=== PATIENT | male | born 1965 | race Caucasian/White ===

== ENCOUNTER → 2016-06-20 | Outpatient (CLI) | payer OTHER ==
[~2016-06-20] MED LIST: /CLON1TA PO; /PREG25CA PO; /PRIM50TA PO; ALBU17IN INH; AUGM875T27 PO; AVOD0.5C; BOTO200I INJ; CIAL5TAB; CIAL5TAB PO; CLEO300C2 PO; CYMB1CAP PO; DICL100T PO; HYDR-3716 PO; HYDR-3719 PO; HYDR7.5T38 PO; INDO25CA PO; IRON65TA PO; LEVA250T; PANT40TA2 PO; PAXI30TA PO; PENN1.5S2 TD; PERC7.5T12 PO; PROP20TA5 PO; PROT20TA11 PO; PROZ20CA11 PO; SLEETAB2 PO; THERGRAN PO; TIOT18INH INH; TRIM10TA PO; TUDO400A IN; ULTR50TA PO; VALI5TAB PO; VICO5TAB PO; VICO7.5T PO; VICODINES TAB PO; VITMTA PO; VOLT1GEL2 TD; ZOLO100T PO; ZOLO50TA PO; [UNRECOGNIZED DRUG - CODE] PO; [UNRECOGNIZED DRUG - CODE] PO; [UNRECOGNIZED DRUG - CODE] PO; [UNRECOGNIZED DRUG - OTHER] TOP; trazadone PO
--- NOTE | 2016-06-30 02:14 | ECWPNPC ---
PATIENT NAME: MONICA CURTIS : 1965 GENDER: MALE VISIT DATE: 06/20/2016 DISCHARGE DATE: 06/20/16 1508 VISIT LOCKED DATE TIME: PHYSICIAN: HARLEEN ASHLEY RESOURCE: HARLEEN ASHLEY REASON FOR APPOINTMENT 1. FOLLOW UP-BACK HISTORY OF PRESENT ILLNESS HISTORY OF PRESENT ILLNESS: PAIN THE PATIENT DESCRIBES THE PAIN... FALL RISK SCREENING: SCREENING :NO FALLS IN THE PAST YEAR TODAY'S VISIT: NOTES: WC FOLLOW UP FOR LOW BACK PAIN. RATES PAIN TODAY 7/10. DESRIBES PAIN SHARP AND STABBING. NOTES SPIKES OF PAIN WHCH CAN LAST FROM AN HOUR TO SEVERAL DAYS. NOTES PAIN WAXES AND WANES IN INTENSITY. SLEEP HAS BEEN DISRUPTED BY PAIN. . CURRENT MEDICATIONS TAKING MULTIVITAMINS TABLET DIRECTED ORALLY TAKING PROTONIX 40 MG TABLET DELAYED RELEASE DIRECTED ORALLY ONCE DAILY TAKING ZOLOFT 175 TABLET 1 TABLET ORALLY ONCE A DAY TAKING HYDROCODONE-ACETAMINOPHEN 10-325 MG TABLET 1 TAB ORALLY Q4H PRN PAIN MDD5 TAKING ASMANEX HFA 100 MCG/ACT AEROSOL 2 PUFFS IN THE EVENING INHALATION ONCE A DAY NOT-TAKING TIZANIDINE HCL 4 MG TABLET 1 OR 2 TABLET ORALLY AT BEDTIME NOT-TAKING DIAZEPAM 5 MG TABLET 1 TABLET ORALLY DAILY MDD=1 NOT-TAKING VALIUM 5 MG TABLET 1 TAB(S) ORALLY TAKE 1 TAB DAILY PERN SPASM MDD=1 NOT-TAKING VALIUM 2 MG TABLET 1 TABLET ORALLY ONCE A DAY MDD=1 NOT-TAKING FLUOXETINE 10 10MG TABLET DIRECTED ORAL NOT-TAKING CIALIS 20 MG TABLET 1 TABLET ORALLY NOT-TAKING CIALIS 20 MG TABLET 1 TABLET ORALLY DAILY NOT-TAKING DOXYCYCLINE HYCLATE 100 MG TABLET 1 TABLET P.O. BID NOT-TAKING DOXYCYCLINE MONOHYDRATE 100 MG CAPSULE 1 CAPSULE ORALLY BID NOT-TAKING TRIMETHOPRIM 100 MG TABLET 2 TABLET ORALLY QD DISCONTINUED SPIRIVA HANDIHALER 18 MCG CAPSULE 1 CAPSULE INHALATION ONCE A DAY DISCONTINUED NORCO 10-325 MG TABLET 1 TABLET ORALLY EVERY4 HRS PRN PAIN MDD=5 MEDICATION LIST REVIEWED AND RECONCILED WITH THE PATIENT PAST MEDICAL HISTORY ERECTILE DYSFUNCTION ANXIETY ESOPHAGEAL REFLUX NASAL POLYPS HYPERLIPIDEMIA SLEEP APNEA RHEUMATIOD ARTHRITIS ALLERGIES N.K.D.A. SOCIAL HISTORY GENERAL: TOBACCO USE ARE YOU A:NONSMOKER LEARNING BARRIERS / SPECIAL NEEDS ORIENTED TO PLAN OF CARE: PATIENT, PAIN MANAGEMENT PATIENT, ORIENTED TO PLAN OF CARE: PATIENT, PAIN MANAGEMENT PATIENT. NEW PATIENT PAIN DIARY TODAY'S VISITNOTES FROM 0-10, WHAT LEVEL IS YOUR PAIN TODAY?0 PAIN CLINIC PFS, CLERGY, PUBLIC HEALTH REFERRALS PFS REFERRAL NEEDED?NO CLERGY REFERRAL NEEDED?NO PUBLIC HEALTH REFERRAL NEEDED?NO WAS THE PROVIDER NOTIFIED OF ANY PERTINENT INFO?NO PFS REFERRAL NEEDED?NO CLERGY REFERRAL NEEDED?NO PUBLIC HEALTH REFERRAL NEEDED?NO WAS THE PROVIDER NOTIFIED OF ANY PERTINENT INFO?NO REVIEW OF SYSTEMS CONSTITUTIONAL: ANY CHANGE IN YOUR MEDICAL CONDITION? NO . CHILLS NO . FEVER NO . INFECTION: DO YOU HAVE NEW INFECTIONS? NO . DO YOU HAVE HISTORY OF MRSA? NO . MUSCULOSKELETAL: ANY NEW PATTERNS OF PAIN OR NUMBNESS? NO . GASTROENTEROLOGY: ANY NEW CHANGE IN BOWEL CONTROL? NO . GENITOURINARY: ANY NEW CHANGE IN BLADDER CONTROL? NO . IS THERE A CHANCE YOU COULD BE ? NO . HEMATOLOGY/LYMPH: DO YOU TAKE ANY BLOOD THINNERS? (FOR EXAMPLE- COUMADIN, PLAVIX, AGGRENOX, PLATEL, PRADAXA, OR XARELTO) NO . WHEN WAS YOUR LAST DOSE? DATE: TIME: . NEUROLOGY: HAVE YOU FALLEN IN THE PAST 6 MONTHS? YES PT REPORTS HIS LEFT LEG GAVE OUT AND HE LANDED ON HIS KNEES, DENIES INJURY . ANY NEW EXTREMITY NUMBNESS OR WEAKNESS? NO . CARDIOLOGY: DO YOU HAVE A PACEMAKER OR DEFIBRILLATOR? NO . RESPIRATORY: HAVE YOU BEEN SICK IN THE PAST WEEK? NO . FEVER NO . FLU LIKE SYMPTOMS? NO . GENERAL RECENT BRONCHIITS WITH BROWN/WHITE PRODUCTION . COUGH NO . INTEGUMENTARY: DO YOU HAVE ANY RASHES OR OPEN SORES? NO . ALLERGIC/IMMUNO: ARE YOU ALLERGIC TO SHELLFISH OR IV DYE? NO . ANY NEW ALLERGIES? NO . PSYCHIATRIC: DO YOU HAVE THOUGHTS OF HURTING YOURSELF OR SOMEONE ELSE? NO . ARE YOU ABUSED, NEGLECTED, OR IN AN UNSAFE ENVIRONMENT? NO . ENDOCRINOLOGY: ARE YOU DIABETIC? NO . OTHER: DO YOU NEED ANY PRESCRIPTIONS? YES . IF YES, PLEASE LIST: ____ . ANY NEW PROBLEMS WITH YOUR MEDICATIONS? NO . WHEN DID YOU LAST EAT? ____ . WHEN DID YOU LAST DRINK? ____ . WHAT DID YOU LAST DRINK? ____ . NAME OF PERSON DRIVING YOU HOME? ____ . DO YOU HAVE ANY OTHER QUESTIONS OR CONCERNS NO . REVIEWED BY: PROVIDER: HARLEEN COSTELLO . VITAL SIGNS WT 208 LBS, HT 70 IN, BMI 29.84 INDEX, BP 115/67 MM HG, HR 105 /MIN, RR 18 /MIN, TEMP 98.4 F, OXYGEN SAT % 99, SAFE IN ENV? (Y/N) YES, NA INITIALS TL 1413, REVIEWED BY: HALEIGH. EXAMINATION GENERAL EXAMINATION: PSYCHALERT , ORIENTED X 3 , APPROPRIATE MOOD AND AFFECT , SMILES MORE TODAY. LUNGS:BILATERAL SCATTERED WHEEZES. HEART:HEART RATE REGULAR. MUSCULOSKELETAL:PALPATION: POSITIVE FOR PAIN OVER LUMBOSACRAL SPINE.. POSITIVE FOR PAIN OVER LUMBAR PARASPINAL MUSCLES.. BILATERAL LOWER EXTREMITIY WEAKNESS NOTED IN QUADS, LEFT > RIGHT.. ABLE TO RISE TO STANDING POSITION. GAIT ANTALGIC. CANE USED FOR BALANCE.. NEUROLOGIC EXAM:MILD INTENTION TREMOR NOTED . ASSESSMENTS LUMBAR POST-LAMINECTOMY SYNDROME - M96.1 (PRIMARY) CHRONICALLY ON OPIATE THERAPY - Z79.891 MYALGIA - M79.1 TREATMENT LUMBAR POST-LAMINECTOMY SYNDROME NOTES: TRY TAKING TIZANIDINE 1-2 TABS EVERY OTHER NITE FOR SLEEP AND SPASM. CONTINUE CURRENT MEDS. CLINICAL NOTES: ISTOP REGISTRY REVIEWED AND DEMNOSTRATES COMPLLIANCE. BRINGS IN MEDICATIONS WHICH IS APPROPRIATE FOR WHAT WAS DISPENSED. RECENT URINE TOXICOLOGY REVIEWED. NO UNAUTHORIZED MEDICATIONS. NO ILLICIT SUBSTANCES AND PRESCRIBED MEDICATIONS WERE PRESENT. PROCEDURES PN WORKMANS' COMP OPINION IN YOUR OPINION, WAS THE INCIDENT THAT THE PATIENT DESCRIBED THE COMPETENT MEDICAL CAUSE OF THIS INJURY/ILLNESS? YES ARE THE PATIENT'S COMPLAINTS CONSISTENT WITH HIS/HER HISTORY OF THE INJURY/ILLNESS? YES IS THE PATIENT'S HISTORY OF THE INJURY/ILLNESS CONSISTENT WITH YOUR OBJECTIVE FINDING? YES WHAT IS THE PERCENTAGE OF TEMPORARY IMPAIRMENT? MODERATE TO MARKED = 66.7% IS THE PATIENT WORKING? NO DOCTOR ON SITE: AYAZ COSTELLO MD PROCEDURE CODES FA211 ESTABILISHED PATIENT [facility] CHARGE DISPOSITION & COMMUNICATION FOLLOW UP 6 WEEKS (REASON: WC BACK) ELECTRONICALLY SIGNED BY MAJOR AVILA ON 06/29/2016 AT 05:00 PM EST DISCLAIMER : THIS IS A VISIT SUMMARY EXTRACTED FROM THE [employer] CHART. IT IS NOT A COPY OF THE [employer] PROGRESS NOTE. JOIE
== END ==
LOC: M PAIN 14:20
PROVIDERS: ATTEND Nurse Practitioner Family
DX: Z09 Encounter for follow-up examination after completed treatment for conditions other than malignant neoplasm (principal); G89.29 Other chronic pain; M96.1 Postlaminectomy syndrome, not elsewhere classified; M79.1 Myalgia; M54.16 Radiculopathy, lumbar region; F41.9 Anxiety disorder, unspecified; K21.9 Gastro-esophageal reflux disease without esophagitis; E78.5 Hyperlipidemia, unspecified; G47.30 Sleep apnea, unspecified; M06.9 Rheumatoid arthritis, unspecified; Z79.891 Long term (current) use of opiate analgesic; Z79.51 Long term (current) use of inhaled steroids; Z79.899 Other long term (current) drug therapy

== ENCOUNTER → 2016-07-29 | Outpatient (CLI) | payer OTHER ==
--- NOTE | 2016-08-10 02:02 | ECWPNPC ---
PATIENT NAME: MONICA CURTIS : 1965 GENDER: MALE VISIT DATE: 07/29/2016 DISCHARGE DATE: 07/29/16 1449 VISIT LOCKED DATE TIME: PHYSICIAN: HARLEEN ASHLEY RESOURCE: HARLEEN ASHLEY REASON FOR APPOINTMENT 1. BACK HISTORY OF PRESENT ILLNESS HISTORY OF PRESENT ILLNESS: PAIN THE PATIENT DESCRIBES THE PAIN... FALL RISK SCREENING: SCREENING :NO FALLS IN THE PAST YEAR TODAY'S VISIT: NOTES: FOLLOWUP FOR LOW BACK PAIN. RATES PAIN TODAY 5/10. DESCRIBES PAIN SHARP, STABBING AND SHOOTING. WITH SPIKES OF PAIN INTO LEGS AT TIMES. DR KASH VAZQUEZ HAS TOLD HIM TO STOP TIZANIDINE AND HE WILL BE STARTING SOMETHING DIFFERENT FOR SLEEP. . CURRENT MEDICATIONS TAKING MULTIVITAMINS TABLET DIRECTED ORALLY TAKING PROTONIX 40 MG TABLET DELAYED RELEASE DIRECTED ORALLY ONCE DAILY TAKING ZOLOFT 175 TABLET 1 TABLET ORALLY ONCE A DAY TAKING ASMANEX HFA 100 MCG/ACT AEROSOL 2 PUFFS IN THE EVENING INHALATION ONCE A DAY TAKING HYDROCODONE-ACETAMINOPHEN 10-325 MG TABLET 1 TAB ORALLY Q4H PRN PAIN MDD5 NOT-TAKING TIZANIDINE HCL 4 MG TABLET 1 OR 2 TABLET ORALLY AT BEDTIME NOT-TAKING DIAZEPAM 5 MG TABLET 1 TABLET ORALLY DAILY MDD=1 NOT-TAKING VALIUM 5 MG TABLET 1 TAB(S) ORALLY TAKE 1 TAB DAILY PERN SPASM MDD=1 NOT-TAKING VALIUM 2 MG TABLET 1 TABLET ORALLY ONCE A DAY MDD=1 NOT-TAKING FLUOXETINE 10 10MG TABLET DIRECTED ORAL NOT-TAKING CIALIS 20 MG TABLET 1 TABLET ORALLY NOT-TAKING CIALIS 20 MG TABLET 1 TABLET ORALLY DAILY NOT-TAKING DOXYCYCLINE HYCLATE 100 MG TABLET 1 TABLET P.O. BID NOT-TAKING DOXYCYCLINE MONOHYDRATE 100 MG CAPSULE 1 CAPSULE ORALLY BID NOT-TAKING TRIMETHOPRIM 100 MG TABLET 2 TABLET ORALLY QD PAST MEDICAL HISTORY ERECTILE DYSFUNCTION ANXIETY ESOPHAGEAL REFLUX NASAL POLYPS HYPERLIPIDEMIA SLEEP APNEA RHEUMATIOD ARTHRITIS ALLERGIES N.K.D.A. SURGICAL HISTORY CARPAL TUNNEL RELEASE CYSTOSCOPY GENITAL WARTS LAMINECTOMY 2011 TURP SOCIAL HISTORY GENERAL: TOBACCO USE ARE YOU A:CURRENT SMOKER HOW MANY CIGARETTES A DAY DO YOU SMOKE?11-20 HOW SOON AFTER YOU WAKE UP DO YOU SMOKE YOUR FIRST CIGARETTE?WITHIN 5 MIN HOW OFTEN DO YOU SMOKE CIGARETTES?EVERY DAY PATIENT COUNSELED ON THE DANGERS OF TOBACCO USE AND URGED TO QUIT:07/29/2016 ARE YOU INTERESTED IN QUITTING?NOT READY TO QUIT COUNSELED THE PATIENT ON SMOKING EFFECTS, EDUCATION [id number]/24/2017 CAFFEINE CAFFEINE USE?YES DAILY LEARNING BARRIERS / SPECIAL NEEDS ORIENTED TO PLAN OF CARE: PATIENT, PAIN MANAGEMENT PATIENT, ORIENTED TO PLAN OF CARE: PATIENT, PAIN MANAGEMENT PATIENT. NEW PATIENT PAIN DIARY TODAY'S VISITNOTES FROM 0-10, WHAT LEVEL IS YOUR PAIN TODAY?0 PAIN CLINIC PFS, CLERGY, PUBLIC HEALTH REFERRALS PFS REFERRAL NEEDED?NO CLERGY REFERRAL NEEDED?NO PUBLIC HEALTH REFERRAL NEEDED?NO WAS THE PROVIDER NOTIFIED OF ANY PERTINENT INFO?NO PFS REFERRAL NEEDED?NO CLERGY REFERRAL NEEDED?NO PUBLIC HEALTH REFERRAL NEEDED?NO WAS THE PROVIDER NOTIFIED OF ANY PERTINENT INFO?NO REVIEWED, UPDATED.[facility].12/12/14. REVIEW OF SYSTEMS CONSTITUTIONAL: ANY CHANGE IN YOUR MEDICAL CONDITION? YES PT HAS NOT BEEN SLEEPING WELL . CHILLS NO . FEVER NO . INFECTION: DO YOU HAVE NEW INFECTIONS? NO . DO YOU HAVE HISTORY OF MRSA? NO . MUSCULOSKELETAL: ANY NEW PATTERNS OF PAIN OR NUMBNESS? NO . GASTROENTEROLOGY: ANY NEW CHANGE IN BOWEL CONTROL? NO . GENITOURINARY: ANY NEW CHANGE IN BLADDER CONTROL? NO . IS THERE A CHANCE YOU COULD BE ? NO . HEMATOLOGY/LYMPH: DO YOU TAKE ANY BLOOD THINNERS? (FOR EXAMPLE- COUMADIN, PLAVIX, AGGRENOX, PLATEL, PRADAXA, OR XARELTO) NO . WHEN WAS YOUR LAST DOSE? DATE: TIME: . NEUROLOGY: HAVE YOU FALLEN IN THE PAST 6 MONTHS? NO . ANY NEW EXTREMITY NUMBNESS OR WEAKNESS? NO . CARDIOLOGY: DO YOU HAVE A PACEMAKER OR DEFIBRILLATOR? NO . RESPIRATORY: HAVE YOU BEEN SICK IN THE PAST WEEK? NO . FEVER NO . FLU LIKE SYMPTOMS? NO . COUGH NO . INTEGUMENTARY: DO YOU HAVE ANY RASHES OR OPEN SORES? NO . ALLERGIC/IMMUNO: ARE YOU ALLERGIC TO SHELLFISH OR IV DYE? NO . ANY NEW ALLERGIES? NO . PSYCHIATRIC: DO YOU HAVE THOUGHTS OF HURTING YOURSELF OR SOMEONE ELSE? NO . ARE YOU ABUSED, NEGLECTED, OR IN AN UNSAFE ENVIRONMENT? NO . ENDOCRINOLOGY: ARE YOU DIABETIC? NO . OTHER: DO YOU NEED ANY PRESCRIPTIONS? YES HYDROCODONE 10 . IF YES, PLEASE LIST: ____ . ANY NEW PROBLEMS WITH YOUR MEDICATIONS? NO . WHEN DID YOU LAST EAT? ____ . WHEN DID YOU LAST DRINK? ____ . WHAT DID YOU LAST DRINK? ____ . NAME OF PERSON DRIVING YOU HOME? ____ . DO YOU HAVE ANY OTHER QUESTIONS OR CONCERNS NO . PSYCHOLOGY: SLEEP DISTURBANCES DISRUPTED DUE TO PAIN . REVIEWED BY: PROVIDER: HARLEEN COSTELLO . VITAL SIGNS WT 203.4 LBS, HT 70 IN, BMI 29.18 INDEX, BP 135/74 MM HG, HR 85 /MIN, RR 18 /MIN, TEMP 98.6 F, OXYGEN SAT % 96, NA INITIALS TL 1425. EXAMINATION GENERAL EXAMINATION: PSYCHALERT , ORIENTED X 3 , APPROPRIATE MOOD AND AFFECT , SMILES MORE TODAY. LUNGS:BILATERAL SCATTERED WHEEZES. HEART:HEART RATE REGULAR. MUSCULOSKELETAL:PALPATION: POSITIVE FOR PAIN OVER LUMBOSACRAL SPINE.. POSITIVE FOR PAIN OVER LUMBAR PARASPINAL MUSCLES POINT TENDERNESS OVER LEFT SIJ... BILATERAL LOWER EXTREMITIY WEAKNESS NOTED IN QUADS, LEFT > RIGHT.. ABLE TO RISE TO STANDING POSITION. GAIT ANTALGIC. CANE USED FOR BALANCE.. NEUROLOGIC EXAM:MILD INTENTION TREMOR NOTED . ASSESSMENTS LUMBAR POST-LAMINECTOMY SYNDROME - M96.1 (PRIMARY) CHRONICALLY ON OPIATE THERAPY - Z79.891 MYALGIA - M79.1 TREATMENT LUMBAR POST-LAMINECTOMY SYNDROME REFILL HYDROCODONE-ACETAMINOPHEN TABLET, 10-325 MG, 1 TAB, ORALLY, Q4H PRN PAIN MDD5, 1 MONTH, 150, REFILLS 0 NOTES: CONTINUE EXERCISES AND STRETCHES. CONTINUE WALKING. CONTINUE CURRENT MEDS. PROCEDURES PN WORKMANS' COMP OPINION IN YOUR OPINION, WAS THE INCIDENT THAT THE PATIENT DESCRIBED THE COMPETENT MEDICAL CAUSE OF THIS INJURY/ILLNESS? YES ARE THE PATIENT'S COMPLAINTS CONSISTENT WITH HIS/HER HISTORY OF THE INJURY/ILLNESS? YES IS THE PATIENT'S HISTORY OF THE INJURY/ILLNESS CONSISTENT WITH YOUR OBJECTIVE FINDING? YES WHAT IS THE PERCENTAGE OF TEMPORARY IMPAIRMENT? MODERATE TO MARKED = 66.7% IS THE PATIENT WORKING? NO DOCTOR ON SITE: AYAZ COSTELLO MD PROCEDURE CODES FA211 ESTABILISHED PATIENT [facility] FACILITY CHARGE DISPOSITION & COMMUNICATION FOLLOW UP [address] ROBERT (REASON: WC BACK) ELECTRONICALLY SIGNED BY MAJOR AVILA ON 08/09/2016 AT 10:26 AM EDT DISCLAIMER : THIS IS A VISIT SUMMARY EXTRACTED FROM THE [employer] CHART. IT IS NOT A COPY OF THE [employer] PROGRESS NOTE. MTDD
== END ==
LOC: M PAIN 14:20
PROVIDERS: ATTEND Nurse Practitioner Family
DX: M96.1 Postlaminectomy syndrome, not elsewhere classified (principal); Z79.891 Long term (current) use of opiate analgesic; Z79.899 Other long term (current) drug therapy; M79.1 Myalgia; F17.210 Nicotine dependence, cigarettes, uncomplicated

== ENCOUNTER → 2016-09-06 | Outpatient (CLI) | payer OTHER ==
--- NOTE | 2016-09-14 01:32 | ECWPNPC ---
PATIENT NAME: MONICA CURTIS : 1965 GENDER: MALE VISIT DATE: 09/06/2016 DISCHARGE DATE: 09/06/16 1631 VISIT LOCKED DATE TIME: PHYSICIAN: AYAZ ROBERT RESOURCE: AYAZ ROBERT REASON FOR APPOINTMENT 1. WC, BACK HISTORY OF PRESENT ILLNESS HISTORY OF PRESENT ILLNESS: PAIN THE PATIENT DESCRIBES THE PAIN... 51 YEAR OLD MALE PATIENT WITH HISTORY OF CHRONIC BACK PAIN. PATIENT DESCRIBES THE PAIN SHARP, STABBING, SHOOTING, AND HAVING IT ALL THE TIME WITH A PAIN SCORE OF 7/10 ON TODAY'S VISIT. 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 PATIENT REPORTS OF HAVING ONE BACK SURGERY IN 2010. PATIENT REPORTS OF TRYING PHYSICAL THERAPY IN THE PAST WITH ANY SUCCESS IN PAIN RELIEF. PATIENT REPORTS OF RADIATING PAIN DOWN THE LEGS. PATIENT REPORTS THAT TAKING HYDROCODONE HELPS TO TAKE SOME OF THE PAIN AWAY. PATIENT REPORTS THAT HE IS TAKING ZOLOFT FOR DEPRESSION. PATIENT STATES AT THIS TIME HE IS NOT INTERESTED IN INJECTIONS. PATIENT REPORTS THAT HE HAS DIFFICULTIES SLEEPING AT NIGHT AND FALL ASLEEP DUE TO THE PAIN. PATIENT DENIES UNEXPLAINABLE WEIGHT LOSS, FEVER, CHILLS, NEW CHANGES ON HIS URINARY OR BOWEL CONTROL. FALL RISK SCREENING: SCREENING :NO FALLS IN THE PAST YEAR CURRENT MEDICATIONS TAKING MULTIVITAMINS TABLET DIRECTED ORALLY DAILY TAKING PROTONIX 40 MG TABLET DELAYED RELEASE DIRECTED ORALLY ONCE DAILY TAKING ZOLOFT 175 TABLET 1 TABLET ORALLY ONCE A DAY TAKING ASMANEX HFA 100 MCG/ACT AEROSOL 2 PUFFS IN THE EVENING INHALATION ONCE A DAY NEEDED TAKING HYDROCODONE-ACETAMINOPHEN 10-325 MG TABLET 1 TAB ORALLY Q4H PRN PAIN MDD5 NOT-TAKING CIALIS 20 MG TABLET 1 TABLET ORALLY NOT-TAKING CIALIS 20 MG TABLET 1 TABLET ORALLY DAILY DISCONTINUED TIZANIDINE HCL 4 MG TABLET 1 OR 2 TABLET ORALLY AT BEDTIME DISCONTINUED DIAZEPAM 5 MG TABLET 1 TABLET ORALLY DAILY MDD=1 DISCONTINUED VALIUM 5 MG TABLET 1 TAB(S) ORALLY TAKE 1 TAB DAILY PERN SPASM MDD=1 DISCONTINUED VALIUM 2 MG TABLET 1 TABLET ORALLY ONCE A DAY MDD=1 DISCONTINUED FLUOXETINE 10 10MG TABLET DIRECTED ORAL DISCONTINUED DOXYCYCLINE HYCLATE 100 MG TABLET 1 TABLET P.O. BID DISCONTINUED DOXYCYCLINE MONOHYDRATE 100 MG CAPSULE 1 CAPSULE ORALLY BID DISCONTINUED TRIMETHOPRIM 100 MG TABLET 2 TABLET ORALLY QD MEDICATION LIST REVIEWED AND RECONCILED WITH THE PATIENT PAST MEDICAL HISTORY ERECTILE DYSFUNCTION ANXIETY ESOPHAGEAL REFLUX NASAL POLYPS HYPERLIPIDEMIA SLEEP APNEA RHEUMATIOD ARTHRITIS ALLERGIES N.K.D.A. SURGICAL HISTORY CARPAL TUNNEL RELEASE CYSTOSCOPY GENITAL WARTS LAMINECTOMY 2011 TURP FAMILY HISTORY NO FAMILY HISTORY DOCUMENTED. SOCIAL HISTORY GENERAL: TOBACCO USE ARE YOU A:CURRENT SMOKER HOW MANY CIGARETTES A DAY DO YOU SMOKE?11-20 HOW SOON AFTER YOU WAKE UP DO YOU SMOKE YOUR FIRST CIGARETTE?WITHIN 5 MIN HOW OFTEN DO YOU SMOKE CIGARETTES?EVERY DAY PATIENT COUNSELED ON THE DANGERS OF TOBACCO USE AND URGED TO QUIT:07/29/2016 ARE YOU INTERESTED IN QUITTING?NOT READY TO QUIT COUNSELED THE PATIENT ON SMOKING EFFECTS, EDUCATION [id number]/24/2017 CAFFEINE CAFFEINE USE?YES DAILY LEARNING BARRIERS / SPECIAL NEEDS ORIENTED TO PLAN OF CARE: PATIENT, PAIN MANAGEMENT PATIENT, ORIENTED TO PLAN OF CARE: PATIENT, PAIN MANAGEMENT PATIENT. NEW PATIENT PAIN DIARY TODAY'S VISITNOTES FROM 0-10, WHAT LEVEL IS YOUR PAIN TODAY?0 PAIN CLINIC PFS, CLERGY, PUBLIC HEALTH REFERRALS PFS REFERRAL NEEDED?NO CLERGY REFERRAL NEEDED?NO PUBLIC HEALTH REFERRAL NEEDED?NO WAS THE PROVIDER NOTIFIED OF ANY PERTINENT INFO?NO PFS REFERRAL NEEDED?NO CLERGY REFERRAL NEEDED?NO PUBLIC HEALTH REFERRAL NEEDED?NO WAS THE PROVIDER NOTIFIED OF ANY PERTINENT INFO?NO REVIEWED, UPDATED.[facility].12/12/14. HOSPITALIZATION/MAJOR DIAGNOSTIC PROCEDURE NO HOSPITALIZATION HISTORY. REVIEW OF SYSTEMS CONSTITUTIONAL: ANY CHANGE IN YOUR MEDICAL CONDITION? NO . CHILLS NO . FEVER NO . INFECTION: DO YOU HAVE NEW INFECTIONS? NO . DO YOU HAVE HISTORY OF MRSA? NO . MUSCULOSKELETAL: ANY NEW PATTERNS OF PAIN OR NUMBNESS? NO . GASTROENTEROLOGY: ANY NEW CHANGE IN BOWEL CONTROL? NO . GENITOURINARY: ANY NEW CHANGE IN BLADDER CONTROL? NO . IS THERE A CHANCE YOU COULD BE ? NO . HEMATOLOGY/LYMPH: DO YOU TAKE ANY BLOOD THINNERS? (FOR EXAMPLE- COUMADIN, PLAVIX, AGGRENOX, PLATEL, PRADAXA, OR XARELTO) NO . WHEN WAS YOUR LAST DOSE? DATE: TIME: . NEUROLOGY: HAVE YOU FALLEN IN THE PAST 6 MONTHS? YES . ANY NEW EXTREMITY NUMBNESS OR WEAKNESS? NO . CARDIOLOGY: DO YOU HAVE A PACEMAKER OR DEFIBRILLATOR? NO . RESPIRATORY: HAVE YOU BEEN SICK IN THE PAST WEEK? NO . FEVER NO . FLU LIKE SYMPTOMS? NO . COUGH NO . INTEGUMENTARY: DO YOU HAVE ANY RASHES OR OPEN SORES? NO . ALLERGIC/IMMUNO: ARE YOU ALLERGIC TO SHELLFISH OR IV DYE? NO . ANY NEW ALLERGIES? NO . PSYCHIATRIC: DO YOU HAVE THOUGHTS OF HURTING YOURSELF OR SOMEONE ELSE? NO . ARE YOU ABUSED, NEGLECTED, OR IN AN UNSAFE ENVIRONMENT? NO . ENDOCRINOLOGY: ARE YOU DIABETIC? NO . OTHER: DO YOU NEED ANY PRESCRIPTIONS? YES . IF YES, PLEASE LIST: HYDROCODONES 10/325MG . ANY NEW PROBLEMS WITH YOUR MEDICATIONS? NO . WHEN DID YOU LAST EAT? ____ . WHEN DID YOU LAST DRINK? ____ . WHAT DID YOU LAST DRINK? ____ . NAME OF PERSON DRIVING YOU HOME? ____ . DO YOU HAVE ANY OTHER QUESTIONS OR CONCERNS YES, HAS BEEN TRYING DIFFERENT MEDS OVER THE COUNTER TO HELP SLEEP. . REVIEWED BY: PROVIDER: AYAZ ROBERT MD . VITAL SIGNS WT 200.8 LBS, HT 70 IN, BMI 28.81 INDEX, BP 133/78 MM HG, HR 86 /MIN, RR 18 /MIN, TEMP 97.9 F, OXYGEN SAT % 94%, NA INITIALS TL 1519, REVIEWED BY: CM. EXAMINATION : PATIENT IS ALERT O X 3 AND COOPERATIVE. PATIENT AMBULATES WITH AN ANTALGIC GAIT AND A WIDE ANGLE GAIT. PATIENT IS ABLE TO FLEX HIS BACK TO 60 DEGREES WITH DISCOMFORT AND EXTEND TO 5 DEGREES WITH DISCOMFORT. THERE IS A SCAR APPROXIMATELY 2 AND A HALF INCHES IN LENGTH IN THE LOW BACK. THERE IS TENDERNESS IN THE LOW BACK PARASPINAL MUSCLE GROUP WITH BANDS OF TISSUES, RESTRICTION OF MOVEMENT AND PRESENCE OF TRIGGER POINTS. HIS LEGS ARE BOTH WEAK, WITH THE LEFT LEG WEAKER AT FLEXION. MRI OF THE LUMBAR SPINE DONE ON 08/11/2015 SHOWS A DISC BULGE AT L4-L5 AND L5-S1 AND A LAMINECTOMY DEFECT AT L5-S1. ASSESSMENTS LUMBAR POST-LAMINECTOMY SYNDROME - M96.1 (PRIMARY) MYALGIA - M79.1 INTERVERTEBRAL DISC DISORDERS WITH RADICULOPATHY, LUMBAR REGION - M51.16 INTERVERTEBRAL DISC DISORDERS WITH RADICULOPATHY, LUMBOSACRAL REGION - M51.17 TREATMENT LUMBAR POST-LAMINECTOMY SYNDROME REFILL HYDROCODONE-ACETAMINOPHEN TABLET, 10-325 MG, 1 TAB, ORALLY, Q4H PRN PAIN MDD5, 1 MONTH, 150, REFILLS 0 NOTES: WE DISCUSSED SEVERAL ISSUES WITH MR. CURTIS'S PAIN MANAGEMENT CASE. AT THIS TIME THE PATIENT WILL RECEIVE A REFILL OF HYDROCODONE. I DISCUSSED WITH THE PATIENT THAT I WOULD LIKE HIM TO DISCUSS WITH DR. VAZQUEZ ABOUT STARTING CYMBALTA. I DISCUSSED WITH THE PATIENT ABOUT THE POSSIBILITY OF A DORSAL COLUMN STIMULATOR. I WILL PROVIDE BOOKLETS FOR THE PATIENT TO READ OVER. I DISCUSSED WITH THE PATIENT TO THINK OVER PROCEEDING WITH THE DCS AND THAT WE CAN DISCUSS THE SUBJECT IN MORE DETAIL IN THE NEXT FOLLOW UP. PATIENT TO FOLLOW UP WITH ME IN 3 WEEKS. INSTRUCTIONS WERE GIVEN, QUESTIONS WERE ANSWERED, PATIENT REPORTS UNDERSTANDING AND AGREES WITH THE PLAN. I, TAWANNA BIRD, DOCUMENTED THE ABOVE INFORMATION ACTING A SCRIBE FOR DR. ROBERT. I HAVE REVIEWED THE ABOVE DOCUMENT, WRITTEN BY TAWANNA BIRD SCRIBKaela AND I VERIFY THAT IT IS ACCURATE. PROCEDURES PN WORKMANS' COMP OPINION IN YOUR OPINION, WAS THE INCIDENT THAT THE PATIENT DESCRIBED THE COMPETENT MEDICAL CAUSE OF THIS INJURY/ILLNESS? YES ARE THE PATIENT'S COMPLAINTS CONSISTENT WITH HIS/HER HISTORY OF THE INJURY/ILLNESS? YES IS THE PATIENT'S HISTORY OF THE INJURY/ILLNESS CONSISTENT WITH YOUR OBJECTIVE FINDING? YES WHAT IS THE PERCENTAGE OF TEMPORARY IMPAIRMENT? MODERATE TO MARKED = 66.7% IS THE PATIENT WORKING? NO DOCTOR ON SITE: AYAZ COSTELLO MD PROCEDURE CODES FA211 ESTABILISHED PATIENT [facility] CHARGE G8730 PAIN ASSESS POS TOOL F/U PLAN DOC [id number] DOC MEDS VERIFIED W/PT OR RE DISPOSITION & COMMUNICATION FOLLOW UP 3 WEEKS ELECTRONICALLY SIGNED BY AYAZ ROBERT MD ON 09/12/2016 AT 08:33 PM EDT DISCLAIMER : THIS IS A VISIT SUMMARY EXTRACTED FROM THE [employer] CHART. IT IS NOT A COPY OF THE [employer] PROGRESS NOTE. JOIE
== END ==
LOC: M PAIN 15:20
PROVIDERS: ATTEND Anesthesiology
DX: G89.29 Other chronic pain (principal); M54.5 Low back pain; M51.16 Intervertebral disc disorders with radiculopathy, lumbar region; M51.17 Intervertebral disc disorders with radiculopathy, lumbosacral region; Z79.891 Long term (current) use of opiate analgesic; Z79.899 Other long term (current) drug therapy; F17.210 Nicotine dependence, cigarettes, uncomplicated

== ENCOUNTER → 2016-09-30 | Outpatient (CLI) | payer OTHER ==
--- NOTE | 2016-10-12 02:17 | ECWPNPC ---
PATIENT NAME: MONICA CURTIS : 1965 GENDER: MALE VISIT DATE: 09/30/2016 DISCHARGE DATE: 09/30/16 1540 VISIT LOCKED DATE TIME: PHYSICIAN: AYAZ ROBERT RESOURCE: AYAZ ROBERT REASON FOR APPOINTMENT 1. W/C BACK HISTORY OF PRESENT ILLNESS HISTORY OF PRESENT ILLNESS: PAIN THE PATIENT DESCRIBES THE PAIN... 51 YEAR OLD MALE PATIENT WITH HISTORY OF CHRONIC BACK PAIN. PATIENT DESCRIBES THE PAIN BURNING, SHARP, STABBING, SHOOTING, AND HAVING IT ALL THE TIME WITH A PAIN SCORE OF 7/10 ON TODAY'S VISIT. 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 PATIENT REPORTS OF HAVING ONE BACK SURGERY IN 2010. PATIENT REPORTS OF TRYING PHYSICAL THERAPY IN THE PAST WITHOUT ANY SUCCESS IN PAIN RELIEF. PATIENT REPORT OF RADIATING PAIN FROM THE BACK DOWN THE FRONT OF THE LEFT LEG STOPPING BELOW THE KNEE. PATIENT DENIES UNEXPLAINABLE WEIGHT LOSS, FEVER, CHILLS, NEW CHANGES ON HIS URINARY OR BOWEL CONTROL. FALL RISK SCREENING: SCREENING :NO FALLS IN THE PAST YEAR CURRENT MEDICATIONS TAKING HYDROCODONE-ACETAMINOPHEN 10-325 MG TABLET 1 TAB ORALLY Q4H PRN PAIN MDD5 TAKING MULTIVITAMINS TABLET DIRECTED ORALLY DAILY TAKING PROTONIX 40 MG TABLET DELAYED RELEASE DIRECTED ORALLY ONCE DAILY TAKING ZOLOFT 175 TABLET 1 TABLET ORALLY ONCE A DAY TAKING ASMANEX HFA 100 MCG/ACT AEROSOL 2 PUFFS IN THE EVENING INHALATION ONCE A DAY NEEDED NOT-TAKING CIALIS 20 MG TABLET 1 TABLET ORALLY NOT-TAKING CIALIS 20 MG TABLET 1 TABLET ORALLY DAILY MEDICATION LIST REVIEWED AND RECONCILED WITH THE PATIENT PAST MEDICAL HISTORY ERECTILE DYSFUNCTION ANXIETY ESOPHAGEAL REFLUX NASAL POLYPS HYPERLIPIDEMIA SLEEP APNEA RHEUMATIOD ARTHRITIS ALLERGIES N.K.D.A. SURGICAL HISTORY CARPAL TUNNEL RELEASE CYSTOSCOPY GENITAL WARTS LAMINECTOMY 2011 TURP FAMILY HISTORY NO FAMILY HISTORY DOCUMENTED. SOCIAL HISTORY GENERAL: TOBACCO USE ARE YOU A:CURRENT SMOKER HOW MANY CIGARETTES A DAY DO YOU SMOKE?11-20 HOW SOON AFTER YOU WAKE UP DO YOU SMOKE YOUR FIRST CIGARETTE?WITHIN 5 MIN HOW OFTEN DO YOU SMOKE CIGARETTES?EVERY DAY PATIENT COUNSELED ON THE DANGERS OF TOBACCO USE AND URGED TO QUIT:09/30/2016 ARE YOU INTERESTED IN QUITTING?NOT READY TO QUIT STATES HE HAS TRIED TO QUIT BUT CAN'T. HE HAS TRIED CHANIX, THE GUM, HYPNOSIS, STOPPING COLD TURKEY AND NOTHING HAS WORKED. COUNSELED THE PATIENT ON SMOKING EFFECTS, EDUCATION [id number]/2017 CAFFEINE CAFFEINE USE?YES DAILY LEARNING BARRIERS / SPECIAL NEEDS ORIENTED TO PLAN OF CARE: PATIENT, PAIN MANAGEMENT PATIENT, ORIENTED TO PLAN OF CARE: PATIENT, PAIN MANAGEMENT PATIENT. NEW PATIENT PAIN DIARY TODAY'S VISITNOTES FROM 0-10, WHAT LEVEL IS YOUR PAIN TODAY?0 PAIN CLINIC PFS, CLERGY, PUBLIC HEALTH REFERRALS PFS REFERRAL NEEDED?NO PFS REFERRAL NEEDED?NO CLERGY REFERRAL NEEDED?NO CLERGY REFERRAL NEEDED?NO PUBLIC HEALTH REFERRAL NEEDED?NO PUBLIC HEALTH REFERRAL NEEDED?NO WAS THE PROVIDER NOTIFIED OF ANY PERTINENT INFO?NO WAS THE PROVIDER NOTIFIED OF ANY PERTINENT INFO?NO REVIEWED, UPDATED.[facility].12/12/14. HOSPITALIZATION/MAJOR DIAGNOSTIC PROCEDURE NO HOSPITALIZATION HISTORY. REVIEW OF SYSTEMS CONSTITUTIONAL: ANY CHANGE IN YOUR MEDICAL CONDITION? NO . CHILLS NO . FEVER NO . INFECTION: DO YOU HAVE NEW INFECTIONS? NO . DO YOU HAVE HISTORY OF MRSA? NO . MUSCULOSKELETAL: ANY NEW PATTERNS OF PAIN OR NUMBNESS? NO . GASTROENTEROLOGY: ANY NEW CHANGE IN BOWEL CONTROL? NO . GENITOURINARY: ANY NEW CHANGE IN BLADDER CONTROL? NO . IS THERE A CHANCE YOU COULD BE ? NO . HEMATOLOGY/LYMPH: DO YOU TAKE ANY BLOOD THINNERS? (FOR EXAMPLE- COUMADIN, PLAVIX, AGGRENOX, PLATEL, PRADAXA, OR XARELTO) NO . WHEN WAS YOUR LAST DOSE? DATE: TIME: . NEUROLOGY: HAVE YOU FALLEN IN THE PAST 6 MONTHS? YES, APPROX. 4 MONTHS AGO, LEFT LEG GAVE OUT AFTER SHOOTING PAIN WENT DOWN IT. . ANY NEW EXTREMITY NUMBNESS OR WEAKNESS? NO . CARDIOLOGY: DO YOU HAVE A PACEMAKER OR DEFIBRILLATOR? NO . RESPIRATORY: HAVE YOU BEEN SICK IN THE PAST WEEK? NO . FEVER NO . FLU LIKE SYMPTOMS? NO . COUGH NO . INTEGUMENTARY: DO YOU HAVE ANY RASHES OR OPEN SORES? NO . ALLERGIC/IMMUNO: ARE YOU ALLERGIC TO SHELLFISH OR IV DYE? NO . ANY NEW ALLERGIES? NO . PSYCHIATRIC: DO YOU HAVE THOUGHTS OF HURTING YOURSELF OR SOMEONE ELSE? NO . ARE YOU ABUSED, NEGLECTED, OR IN AN UNSAFE ENVIRONMENT? NO . ENDOCRINOLOGY: ARE YOU DIABETIC? NO . OTHER: DO YOU NEED ANY PRESCRIPTIONS? YES . IF YES, PLEASE LIST: HYDROCODONE . ANY NEW PROBLEMS WITH YOUR MEDICATIONS? NO . WHEN DID YOU LAST EAT? ____ . WHEN DID YOU LAST DRINK? ____ . WHAT DID YOU LAST DRINK? ____ . NAME OF PERSON DRIVING YOU HOME? ____ . DO YOU HAVE ANY OTHER QUESTIONS OR CONCERNS NO . REVIEWED BY: PROVIDER: AYAZ ROBERT MD . VITAL SIGNS WT 196 LBS, HT 70 IN, BMI 28.12 INDEX, BP 124/80 MM HG, HR 108 /MIN, RR 18 /MIN, TEMP 98.8 F, OXYGEN SAT % 96%, REVIEWED BY: AD. EXAMINATION : PATIENT IS ALERT O X 3 AND COOPERATIVE. PATIENT AMBULATES WITH AN ANTALGIC GAIT AND A LIMP ON THE LEFT LEG. THERE IS TENDERNESS IN THE LOW BACK PARASPINAL MUSCLE GROUP. PATIENT'S LEGS ARE WEAKER BUT THE LEFT LEG IS WEAKER AT FLEXION AND EXTENSION. MRI OF THE LUMBAR SPINE DONE ON 08/11/2015 SHOWS A DISC BULGE AT L4-L5 AND L5-S1 AND A LAMINECTOMY DEFECT AT L5-S1. ASSESSMENTS LUMBAR POST-LAMINECTOMY SYNDROME - M96.1 (PRIMARY) INTERVERTEBRAL DISC DISORDERS WITH RADICULOPATHY, LUMBAR REGION - M51.16 INTERVERTEBRAL DISC DISORDERS WITH RADICULOPATHY, LUMBOSACRAL REGION - M51.17 TREATMENT LUMBAR POST-LAMINECTOMY SYNDROME REFILL HYDROCODONE-ACETAMINOPHEN TABLET, 10-325 MG, 1 TAB, ORALLY, Q4H PRN PAIN MDD5, 1 MONTH, 150, REFILLS 0 NOTES: WE DISCUSSED SEVERAL ISSUES WITH MR. CURTIS'S PAIN MANAGEMENT CASE. AT THIS TIME THE PATIENT WILL RECEIVE A REFILL OF HYDROCODONE. PATIENT IS TAKING HYDROCODONE FOR THE SOMATIC PAIN. PATIENT DENIES ABUSING THE MEDICATION AND ONLY USING IT INTENDED FOR PAIN MANAGEMENT. I DISCUSSED WITH THE PATIENT ABOUT THE POSSIBILITY OF A SPINAL COLUMN STIMULATOR AND FOR HIM TO THINK IT OUT. PATIENT WILL FOLLOW UP WITH ME IN 8 WEEKS. INSTRUCTIONS WERE GIVEN, QUESTIONS WERE ANSWERED, PATIENT REPORTS UNDERSTANDING AND AGREES WITH THE PLAN. I, TAWANNA BIRD, DOCUMENTED THE ABOVE INFORMATION ACTING A SCRIBE FOR DR. ROBERT. I HAVE REVIEWED THE ABOVE DOCUMENT, WRITTEN BY TAWANNA GUY AND I VERIFY THAT IT IS ACCURATE. PROCEDURES PN WORKMANS' COMP OPINION IN YOUR OPINION, WAS THE INCIDENT THAT THE PATIENT DESCRIBED THE COMPETENT MEDICAL CAUSE OF THIS INJURY/ILLNESS? YES ARE THE PATIENT'S COMPLAINTS CONSISTENT WITH HIS/HER HISTORY OF THE INJURY/ILLNESS? YES IS THE PATIENT'S HISTORY OF THE INJURY/ILLNESS CONSISTENT WITH YOUR OBJECTIVE FINDING? YES WHAT IS THE PERCENTAGE OF TEMPORARY IMPAIRMENT? MODERATE TO MARKED = 66.7% IS THE PATIENT WORKING? NO DOCTOR ON SITE: AYAZ COSTELLO MD PROCEDURE CODES FA211 ESTABILISHED PATIENT [facility] CHARGE G8730 PAIN ASSESS POS TOOL F/U PLAN DOC G8427 DOC MEDS VERIFIED W/PT OR RE DISPOSITION & COMMUNICATION FOLLOW UP 8 WEEK ELECTRONICALLY SIGNED BY AYAZ ROBERT MD ON 10/11/2016 AT 07:50 PM EDT DISCLAIMER : THIS IS A VISIT SUMMARY EXTRACTED FROM THE [employer] CHART. IT IS NOT A COPY OF THE [employer] PROGRESS NOTE. JOIE
== END ==
LOC: M PAIN 14:20
PROVIDERS: ATTEND Anesthesiology
DX: M96.1 Postlaminectomy syndrome, not elsewhere classified (principal); M51.16 Intervertebral disc disorders with radiculopathy, lumbar region; M51.17 Intervertebral disc disorders with radiculopathy, lumbosacral region; F41.9 Anxiety disorder, unspecified; K21.9 Gastro-esophageal reflux disease without esophagitis; E78.5 Hyperlipidemia, unspecified; G47.30 Sleep apnea, unspecified; M06.9 Rheumatoid arthritis, unspecified; F17.210 Nicotine dependence, cigarettes, uncomplicated; Z79.891 Long term (current) use of opiate analgesic; Z79.899 Other long term (current) drug therapy

== ENCOUNTER → 2016-11-30 | Outpatient (CLI) | payer OTHER ==
[~2016-11-30] MED LIST changes: +AMIT10TA PO; +ASMA16.7 PO; -AUGM875T27 PO; +AUGM875T28 PO; +MULT1TAB11 PO; +TIZA4CAP3 PO; +ZOLO25TA PO
--- NOTE | 2016-12-21 01:55 | ECWPNPC ---
PATIENT NAME: MONICA CURTIS : 1965 GENDER: MALE VISIT DATE: 11/30/2016 DISCHARGE DATE: 11/30/16 1414 VISIT LOCKED DATE TIME: PHYSICIAN: AYAZ ROBERT RESOURCE: AYAZ ROBERT REASON FOR APPOINTMENT 1. W/C BACK PAIN HISTORY OF PRESENT ILLNESS HISTORY OF PRESENT ILLNESS: PAIN THE PATIENT DESCRIBES THE PAIN... 51 YEAR OLD MALE PATIENT WITH HISTORY OF CHRONIC BACK PAIN. PATIENT DESCRIBES THE PAIN BURNING, SHARP, STABBING, SHOOTING, AND HAVING IT ALL THE TIME WITH A PAIN SCORE OF 7/10 ON TODAY'S VISIT. 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 PATIENT REPORTS OF HAVING ONE BACK SURGERY IN 2010. PATIENT REPORTS OF TRYING PHYSICAL THERAPY IN THE PAST WITHOUT ANY SUCCESS IN PAIN RELIEF. PATIENT REPORT OF RADIATING PAIN FROM THE BACK DOWN THE FRONT OF THE LEFT LEG STOPPING BELOW THE KNEE. PATIENT DENIES UNEXPLAINABLE WEIGHT LOSS, FEVER, CHILLS, NEW CHANGES ON HIS URINARY OR BOWEL CONTROL. FALL RISK SCREENING: SCREENING :TWO OR MORE FALLS WITHOUT INJURY IN THE PAST YEAR CURRENT MEDICATIONS TAKING MULTIVITAMINS TABLET DIRECTED ORALLY DAILY TAKING PROTONIX 40 MG TABLET DELAYED RELEASE DIRECTED ORALLY ONCE DAILY TAKING ZOLOFT 175 TABLET 1 TABLET ORALLY ONCE A DAY TAKING ASMANEX HFA 100 MCG/ACT AEROSOL 2 PUFFS IN THE EVENING INHALATION ONCE A DAY NEEDED TAKING HYDROCODONE-ACETAMINOPHEN 10-325 MG TABLET 1 TAB ORALLY Q4H PRN PAIN MDD5 NOT-TAKING CIALIS 20 MG TABLET 1 TABLET ORALLY NOT-TAKING CIALIS 20 MG TABLET 1 TABLET ORALLY DAILY MEDICATION LIST REVIEWED AND RECONCILED WITH THE PATIENT PAST MEDICAL HISTORY ERECTILE DYSFUNCTION ANXIETY ESOPHAGEAL REFLUX NASAL POLYPS HYPERLIPIDEMIA SLEEP APNEA RHEUMATIOD ARTHRITIS ALLERGIES N.K.D.A. SOCIAL HISTORY GENERAL: TOBACCO USE ARE YOU A:CURRENT SMOKER HOW MANY CIGARETTES A DAY DO YOU SMOKE?11-20 HOW SOON AFTER YOU WAKE UP DO YOU SMOKE YOUR FIRST CIGARETTE?WITHIN 5 MIN HOW OFTEN DO YOU SMOKE CIGARETTES?EVERY DAY PATIENT COUNSELED ON THE DANGERS OF TOBACCO USE AND URGED TO QUIT:11/30/2016 ARE YOU INTERESTED IN QUITTING?NOT READY TO QUIT STATES HE HAS TRIED TO QUIT BUT CAN'T. HE HAS TRIED CHANIX, THE GUM, HYPNOSIS, STOPPING COLD TURKEY AND NOTHING HAS WORKED. COUNSELED THE PATIENT ON SMOKING EFFECTS, EDUCATION [id number]/26/2017 CAFFEINE CAFFEINE USE?YES DAILY LEARNING BARRIERS / SPECIAL NEEDS ORIENTED TO PLAN OF CARE: PATIENT, PAIN MANAGEMENT PATIENT, ORIENTED TO PLAN OF CARE: PATIENT, PAIN MANAGEMENT PATIENT. NEW PATIENT PAIN DIARY TODAY'S VISIT NOTES, FROM 0-10, WHAT LEVEL IS YOUR PAIN TODAY? 0. PAIN CLINIC PFS, CLERGY, PUBLIC HEALTH REFERRALS PFS REFERRAL NEEDED? NO, CLERGY REFERRAL NEEDED? NO, PUBLIC HEALTH REFERRAL NEEDED? NO, WAS THE PROVIDER NOTIFIED OF ANY PERTINENT INFO? NO, PFS REFERRAL NEEDED? NO, CLERGY REFERRAL NEEDED? NO, PUBLIC HEALTH REFERRAL NEEDED? NO, WAS THE PROVIDER NOTIFIED OF ANY PERTINENT INFO? NO. REVIEWED, UPDATED.[facility].12/12/14. REVIEW OF SYSTEMS REVIEWED BY: PROVIDER: AYAZ ROBERT MD . CONSTITUTIONAL: ANY CHANGE IN YOUR MEDICAL CONDITION? NO . CHILLS NO . FEVER NO . INFECTION: DO YOU HAVE NEW INFECTIONS? NO . DO YOU HAVE HISTORY OF MRSA? NO . MUSCULOSKELETAL: ANY NEW PATTERNS OF PAIN OR NUMBNESS? NO . GASTROENTEROLOGY: ANY NEW CHANGE IN BOWEL CONTROL? NO . GENITOURINARY: ANY NEW CHANGE IN BLADDER CONTROL? NO . IS THERE A CHANCE YOU COULD BE ? NO . HEMATOLOGY/LYMPH: DO YOU TAKE ANY BLOOD THINNERS? (FOR EXAMPLE- COUMADIN, PLAVIX, AGGRENOX, PLATEL, PRADAXA, OR XARELTO) NO . WHEN WAS YOUR LAST DOSE? DATE: TIME: . NEUROLOGY: HAVE YOU FALLEN IN THE PAST 6 MONTHS? YES . ANY NEW EXTREMITY NUMBNESS OR WEAKNESS? NO . CARDIOLOGY: DO YOU HAVE A PACEMAKER OR DEFIBRILLATOR? NO . RESPIRATORY: HAVE YOU BEEN SICK IN THE PAST WEEK? NO . FEVER NO . FLU LIKE SYMPTOMS? NO . COUGH NO . INTEGUMENTARY: DO YOU HAVE ANY RASHES OR OPEN SORES? NO . ALLERGIC/IMMUNO: ARE YOU ALLERGIC TO SHELLFISH OR IV DYE? NO . ANY NEW ALLERGIES? NO . PSYCHIATRIC: DO YOU HAVE THOUGHTS OF HURTING YOURSELF OR SOMEONE ELSE? NO . ARE YOU ABUSED, NEGLECTED, OR IN AN UNSAFE ENVIRONMENT? NO . ENDOCRINOLOGY: ARE YOU DIABETIC? NO . OTHER: DO YOU NEED ANY PRESCRIPTIONS? YES . IF YES, PLEASE LIST: ____HYDROCODONE 10-325 . ANY NEW PROBLEMS WITH YOUR MEDICATIONS? NO . WHEN DID YOU LAST EAT? ____ . WHEN DID YOU LAST DRINK? ____ . WHAT DID YOU LAST DRINK? ____ . NAME OF PERSON DRIVING YOU HOME? ____ . DO YOU HAVE ANY OTHER QUESTIONS OR CONCERNS NO . VITAL SIGNS WT 205.6 LBS, HT 70 IN, BMI 29.50 INDEX, BP 126/77 MM HG, HR 67 /MIN, RR 18 /MIN, TEMP 97.2 F, OXYGEN SAT % 100%, NA INITIALS TL 1330, REVIEWED BY: VD. EXAMINATION : PATIENT IS ALERT O X 3 AND COOPERATIVE. PATIENT AMBULATES WITH AN ANTALGIC GAIT AND A LIMP ON THE LEFT LEG. THERE IS TENDERNESS IN THE LOW BACK PARASPINAL MUSCLE GROUP. PATIENT'S LEGS ARE WEAKER BUT THE LEFT LEG IS WEAKER AT FLEXION AND EXTENSION. MRI OF THE LUMBAR SPINE DONE ON 08/11/2015 SHOWS A DISC BULGE AT L4-L5 AND L5-S1 AND A LAMINECTOMY DEFECT AT L5-S1. ASSESSMENTS LUMBAR POST-LAMINECTOMY SYNDROME - M96.1 (PRIMARY) INTERVERTEBRAL DISC DISORDERS WITH RADICULOPATHY, LUMBAR REGION - M51.16 INTERVERTEBRAL DISC DISORDERS WITH RADICULOPATHY, LUMBOSACRAL REGION - M51.17 TREATMENT LUMBAR POST-LAMINECTOMY SYNDROME REFILL HYDROCODONE-ACETAMINOPHEN TABLET, 10-325 MG, 1 TAB, ORALLY, Q4H PRN PAIN MDD5, 1 MONTH, 150, REFILLS 0 START VOLTAREN GEL, 1 %, 1 STRIP, TRANSDERMAL, EVERY 4 HOURS NEEDED FOR PAIN, 30 DAY(S), 1, REFILLS 2 NOTES: WE DISCUSSED SEVERAL ISSUES WITH MR. CURTIS'S PAIN MANAGEMENT CASE. AT THIS TIME THE PATIENT WILL RECEIVE A REFILL OF HYDROCODONE. PATIENT IS TAKING HYDROCODONE FOR THE SOMATIC PAIN. PATIENT DENIES ABUSING THE MEDICATION AND ONLY USING IT INTENDED FOR PAIN MANAGEMENT. I WOULD LIKE THE PATIENT TO START VOLTAREN GEL TO BE USED DIRECTLY ON THE LOWER BACK TO AID IN PAIN RELIEF. PATIENT WAS REMINDED TO BRING ALL MEDICATIONS TO THE VISIT IN THEIR ORIGINAL BOTTLES. MR. CURTIS WILL PERFORM A URINE TOXICOLOGY TODAY. WE DISCUSSED SEVERAL INTERVENTIONS THAT MAY AID THE PATIENT IN PAIN RELIEF AND AT THIS TIME THE PATIENT DOES NOT WANT TO MOVE FORWARD WITH AN INJECTION. PATIENT WILL RECEIVE INFORMATION ON A TRANSFORAMINAL TO CONSIDER IN THE FUTURE. PATIENT WILL FOLLOW UP IN 6 WEEKS. INSTRUCTIONS WERE GIVEN, QUESTIONS WERE ANSWERED, PATIENT REPORTS UNDERSTANDING AND AGREES WITH THE PLAN. I, CHIP CASTAÑEDA, DOCUMENTED THE ABOVE INFORMATION ACTING A SCRIBE FOR DR. ROBERT. I HAVE REVIEWED THE ABOVE DOCUMENT, WRITTEN BY CHIP GUY AND I VERIFY THAT IT IS ACCURATE. PROCEDURES PN WORKMANS' COMP OPINION IN YOUR OPINION, WAS THE INCIDENT THAT THE PATIENT DESCRIBED THE COMPETENT MEDICAL CAUSE OF THIS INJURY/ILLNESS? YES ARE THE PATIENT'S COMPLAINTS CONSISTENT WITH HIS/HER HISTORY OF THE INJURY/ILLNESS? YES IS THE PATIENT'S HISTORY OF THE INJURY/ILLNESS CONSISTENT WITH YOUR OBJECTIVE FINDING? YES WHAT IS THE PERCENTAGE OF TEMPORARY IMPAIRMENT? MODERATE TO MARKED = 66.7% IS THE PATIENT WORKING? NO DOCTOR ON SITE: AYAZ COSTELLO MD PROCEDURE CODES FA211 ESTABILISHED PATIENT [facility]AC[facility] CHARGE G8427 DOC MEDS VERIFIED W/PT OR RE G8730 PAIN ASSESS POS TOOL F/U PLAN DOC DISPOSITION & COMMUNICATION FOLLOW UP 6 WEEKS ELECTRONICALLY SIGNED BY AYAZ ROBERT MD ON 12/20/2016 AT 06:33 PM EDT DISCLAIMER : THIS IS A VISIT SUMMARY EXTRACTED FROM THE [employer] CHART. IT IS NOT A COPY OF THE [employer] PROGRESS NOTE. JOIE
== END ==
LOC: M PAIN 13:20
PROVIDERS: ATTEND Anesthesiology
DX: M96.1 Postlaminectomy syndrome, not elsewhere classified (principal); M51.16 Intervertebral disc disorders with radiculopathy, lumbar region; M51.17 Intervertebral disc disorders with radiculopathy, lumbosacral region; G89.29 Other chronic pain; Z79.891 Long term (current) use of opiate analgesic; Z79.899 Other long term (current) drug therapy; F17.210 Nicotine dependence, cigarettes, uncomplicated

== ENCOUNTER 2017-01-11 11:05 | Outpatient (CLI) | payer OTHER ==
[~2017-01-11] VITALS: Ht 180.3 cm; Wt 90.7 kg
[2017-01-11] MEDS ORDERED: NS 1,000 ML IV ONE (11:15)
[2017-01-11] MEDS ORDERED: PROPOFOL 500 MG/50 ML VIAL As Ordered ONE (11:35)
[2017-01-11] MEDS ORDERED: LIDOCAINE 2% INJ 100 MG/5 ML SDV (FOR ANES.) As Ordered ONE (11:44)
[2017-01-11] MEDS ORDERED: fentaNYL 100 MCG/2 ML INJECTION (J3010) As Ordered ONE (12:05)
--- NOTE | 2017-01-11 12:26 | ROOR ---
Patient Name: Omer Roth Procedure Date: 01/11/2017 12:01 PM Date of : 1965 Age: 51 Room: [facility] Gender: Male Note Status: Finalized Procedure: Upper Endoscopy + Biopsies Indications: Heartburn, Exclusion of Kent's esophagus Providers: Jerrod Martinez MD Referring MD: KASH VAZQUEZ DO Requesting Provider: Medicines: Monitored Anesthesia Care Complications: No immediate complications. Procedure: Pre-Anesthesia Assessment: - The heart rate, respiratory rate, oxygen saturations, blood pressure, adequacy of pulmonary ventilation, and response to care were monitored throughout the procedure. The Endoscope was introduced through the mouth, and advanced to the second part of duodenum. The upper GI endoscopy was accomplished without difficulty. The patient tolerated the procedure well. Findings: The Z-line was irregular and was found 35 cm from the incisors. Multiple biopsies were obtained with cold forceps for evaluation to rule out Kent's Esophagus randomly at the gastroesophageal junction. A medium-sized hiatal hernia was present. No other significant abnormalities were identified in a careful examination of the stomach. The exam of the duodenum was otherwise normal. Impression: - Z-line irregular, 35 cm from the incisors. - Medium-sized hiatal hernia. - Multiple biopsies were obtained at the gastroesophageal junction. - The examination was otherwise normal. Recommendation: - Patient has a contact number available for emergencies. The signs and symptoms of potential delayed complications were discussed with the patient. Return to normal activities tomorrow. Written discharge instructions were provided to the patient. - High fiber diet. - Discharge patient to home. - Continue present medications. - Await pathology results. - Telephone GI clinic for pathology results in 1 week. - Return to referring physician. - The findings and recommendations were discussed with the patient's family. Jerrod Martinez MD Jerrod Martinez MD 01/11/2017 12:25:42 PM This report has been signed electronically. Number of Addenda: 0 Note Initiated On: 01/11/2017 12:01 PM Estimated Blood Loss: Estimated blood loss: none.
--- NOTE | 2017-01-11 12:46 | ROOR ---
Patient Name: Omer Roth Procedure Date: 01/11/2017 12:02 PM Date of : 1965 Age: 51 Room: [facility] Gender: Male Note Status: Finalized Procedure: Total Colonoscopy to Cecum + Cold Snare Polypectomy Indications: Screening for colorectal malignant neoplasm Providers: Jerrod Martinez MD Referring MD: KASH VAZQUEZ DO Requesting Provider: Medicines: Monitored Anesthesia Care Complications: No immediate complications. Procedure: Pre-Anesthesia Assessment: - The heart rate, respiratory rate, oxygen saturations, blood pressure, adequacy of pulmonary ventilation, and response to care were monitored throughout the procedure. The Colonoscope was introduced through the anus and advanced to the cecum, identified by appendiceal orifice and ileocecal valve. The colonoscopy was performed without difficulty. The patient tolerated the procedure well. The quality of the bowel preparation was excellent. Findings: The perianal and digital rectal examinations were normal. Non-bleeding internal hemorrhoids were found during retroflexion. The hemorrhoids were small and Grade I (internal hemorrhoids that do not prolapse). Scattered small-mouthed diverticula were found in the recto-sigmoid colon, sigmoid colon and descending colon. Two sessile polyps were found at 50 cm proximal to the anus. The polyps were small in size. These polyps were removed with a cold snare. Resection and retrieval were complete. The exam was otherwise without abnormality on direct and retroflexion views. Impression: - Non-bleeding internal hemorrhoids. - Diverticulosis in the recto-sigmoid colon, in the sigmoid colon and in the descending colon. - Two small polyps at 50 cm proximal to the anus, removed with a cold snare. Resected and retrieved. - The examination was otherwise normal on direct and retroflexion views. - The exam was otherwise normal to the cecum. Recommendation: - Patient has a contact number available for emergencies. The signs and symptoms of potential delayed complications were discussed with the patient. Return to normal activities tomorrow. Written discharge instructions were provided to the patient. - High fiber diet. - Discharge patient to home. - Continue present medications. - Await pathology results. - Telephone GI clinic for pathology results in 1 week. - Repeat colonoscopy in 5 years for surveillance based on pathology results. - Return to referring physician. - The findings and recommendations were discussed with the patient's family. Jerrod Martinez MD Jerrod Martinez MD 01/11/2017 12:46:10 PM This report has been signed electronically. Number of Addenda: 0 Note Initiated On: 01/11/2017 12:02 PM Estimated Blood Loss: Estimated blood loss: none.
[2017-01-11 13:15] VITALS: BP 108/99
== END 2017-01-11 13:19 | disposition home or self-care (01) ==
LOC: M OPP 11:05
PROVIDERS: ATTEND Internal Medicine Gastroenterology
DX: Z12.11 Encounter for screening for malignant neoplasm of colon (principal); K64.0 First degree hemorrhoids; K57.30 Diverticulosis of large intestine without perforation or abscess without bleeding; D12.5 Benign neoplasm of sigmoid colon; K21.0 Gastro-esophageal reflux disease with esophagitis; K22.8 Other specified diseases of esophagus; K44.9 Diaphragmatic hernia without obstruction or gangrene; F41.9 Anxiety disorder, unspecified; F33.9 Major depressive disorder, recurrent, unspecified; J44.9 Chronic obstructive pulmonary disease, unspecified; G47.30 Sleep apnea, unspecified; F17.210 Nicotine dependence, cigarettes, uncomplicated; Z79.899 Other long term (current) drug therapy; Z88.1 Allergy status to other antibiotic agents; Z88.5 Allergy status to narcotic agent; Z88.8 Allergy status to other drugs, medicaments and biological substances
CPT/HCPCS: 43239; 45385; 88305; J3010

== ENCOUNTER → 2017-01-13 | Outpatient (CLI) | payer OTHER ==
--- NOTE | 2017-01-24 02:52 | ECWPNPC ---
PATIENT NAME: MONICA CURTIS : 1965 GENDER: MALE VISIT DATE: 01/13/2017 DISCHARGE DATE: 01/13/17 1638 VISIT LOCKED DATE TIME: PHYSICIAN: AYAZ ROBERT RESOURCE: AYAZ ROBERT REASON FOR APPOINTMENT 1. W/C LOW BACK PAIN HISTORY OF PRESENT ILLNESS HISTORY OF PRESENT ILLNESS: PAIN THE PATIENT DESCRIBES THE PAIN... 51 YEAR OLD MALE PATIENT WITH HISTORY OF CHRONIC BACK PAIN. PATIENT DESCRIBES THE PAIN BURNING, STABBING, SHOOTING AND HAVING THE PAIN ALL THE TIME. PATIENT HAS A PAIN SCORE OF 6/10 AT [facility] VISIT. 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 PATIENT REPORTS OF HAVING ONE BACK SURGERY IN 2010. PATIENT REPORTS OF TRYING PHYSICAL THERAPY IN THE PAST WITHOUT ANY SUCCESS IN PAIN RELIEF. PATIENT REPORTS OF RADIATING PAIN FROM THE BACK DOWN THE FRONT OF THE LEFT LEG STOPPING BELOW THE KNEE. PATIENT DENIES UNEXPLAINABLE WEIGHT LOSS, FEVER, CHILLS, NEW CHANGES ON HIS URINARY OR BOWEL CONTROL. FALL RISK SCREENING: SCREENING :NO FALLS IN THE PAST YEAR CURRENT MEDICATIONS TAKING MULTIVITAMINS TABLET DIRECTED ORALLY DAILY TAKING PROTONIX 40 MG TABLET DELAYED RELEASE DIRECTED ORALLY ONCE DAILY TAKING ZOLOFT 175 TABLET 1 TABLET ORALLY ONCE A DAY TAKING ASMANEX HFA 100 MCG/ACT AEROSOL 2 PUFFS IN THE EVENING INHALATION ONCE A DAY NEEDED TAKING HYDROCODONE-ACETAMINOPHEN 10-325 MG TABLET 1 TAB ORALLY Q4H PRN PAIN MDD5 TAKING VOLTAREN 1 % GEL ONE APPLICATION TRANSDERMAL APPLY 4 GRAMS TO LOW BACK Q 6 HRS FOR PAIN TAKING AMITRIPTYLINE HCL 25 MG TABLET 1 TABLET ORALLY ONCE A DAY TAKING VENTOLIN HFA 108 (90 BASE) MCG/ACT AEROSOL SOLUTION 2 PUFFS NEEDED INHALATION EVERY 4 HRS NOT-TAKING CIALIS 20 MG TABLET 1 TABLET ORALLY NOT-TAKING CIALIS 20 MG TABLET 1 TABLET ORALLY DAILY MEDICATION LIST REVIEWED AND RECONCILED WITH THE PATIENT PAST MEDICAL HISTORY ERECTILE DYSFUNCTION ANXIETY ESOPHAGEAL REFLUX NASAL POLYPS HYPERLIPIDEMIA SLEEP APNEA RHEUMATIOD ARTHRITIS ALLERGIES N.K.D.A. SOCIAL HISTORY GENERAL: TOBACCO USE ARE YOU A:CURRENT SMOKER HOW MANY CIGARETTES A DAY DO YOU SMOKE?11-20 HOW SOON AFTER YOU WAKE UP DO YOU SMOKE YOUR FIRST CIGARETTE?WITHIN 5 MIN HOW OFTEN DO YOU SMOKE CIGARETTES?EVERY DAY PATIENT COUNSELED ON THE DANGERS OF TOBACCO USE AND URGED TO QUIT:01/13/2017 ARE YOU INTERESTED IN QUITTING?NOT READY TO QUIT STATES HE HAS TRIED TO QUIT BUT CAN'T. HE HAS TRIED CHANIX, THE GUM, HYPNOSIS, STOPPING COLD [place]UR[place] AND NOTHING HAS WORKED. COUNSELED THE PATIENT ON SMOKING EFFECTS, EDUCATION [id number]/08/2017 CAFFEINE CAFFEINE USE?YES DAILY LEARNING BARRIERS / SPECIAL NEEDS ORIENTED TO PLAN OF CARE: PATIENT, PAIN MANAGEMENT PATIENT, ORIENTED TO PLAN OF CARE: PATIENT, PAIN MANAGEMENT PATIENT. NEW PATIENT PAIN DIARY TODAY'S VISIT NOTES, FROM 0-10, WHAT LEVEL IS YOUR PAIN TODAY? 0. PAIN CLINIC PFS, CLERGY, PUBLIC HEALTH REFERRALS HAS THE PATIENT BEEN EDUCATED REGARDING HIS/HER PLAN OF CARE?YES HAS THE PATIENT BEEN EDUCATED REGARDING PAIN, THE RISK FOR PAIN, THE IMPORTANCE OF EFFECTIVE PAIN MANAGEMENT, AND THE PAIN ASSESSMENT PROCESS?YES REVIEWED, UPDATED.[facility].12/12/14. REVIEW OF SYSTEMS REVIEWED BY: PROVIDER: AYAZ ROBERT MD . CONSTITUTIONAL: ANY CHANGE IN YOUR MEDICAL CONDITION? NO . CHILLS NO . FEVER NO . INFECTION: DO YOU HAVE NEW INFECTIONS? NO . DO YOU HAVE HISTORY OF MRSA? NO . MUSCULOSKELETAL: ANY NEW PATTERNS OF PAIN OR NUMBNESS? NO . GASTROENTEROLOGY: ANY NEW CHANGE IN BOWEL CONTROL? NO . GENITOURINARY: ANY NEW CHANGE IN BLADDER CONTROL? NO . IS THERE A CHANCE YOU COULD BE ? NO . HEMATOLOGY/LYMPH: DO YOU TAKE ANY BLOOD THINNERS? (FOR EXAMPLE- COUMADIN, PLAVIX, AGGRENOX, PLATEL, PRADAXA, OR XARELTO) NO . WHEN WAS YOUR LAST DOSE? DATE: TIME: . NEUROLOGY: HAVE YOU FALLEN IN THE PAST 6 MONTHS? YES PT REPORTS THAT HE GETS PAIN SHOOTING DOWN HIS LEG, AND THEN IT GIVES OUT ON HIM. MOST RECENTLY FELL ABOUT 3 WEEKS AGO, NO INJURY FROM FALL, NO ED VISITS. . ANY NEW EXTREMITY NUMBNESS OR WEAKNESS? NO . CARDIOLOGY: DO YOU HAVE A PACEMAKER OR DEFIBRILLATOR? NO . RESPIRATORY: HAVE YOU BEEN SICK IN THE PAST WEEK? NO . FEVER NO . FLU LIKE SYMPTOMS? NO . COUGH NO . INTEGUMENTARY: DO YOU HAVE ANY RASHES OR OPEN SORES? NO . ALLERGIC/IMMUNO: ARE YOU ALLERGIC TO SHELLFISH OR IV DYE? NO . ANY NEW ALLERGIES? NO . PSYCHIATRIC: DO YOU HAVE THOUGHTS OF HURTING YOURSELF OR SOMEONE ELSE? NO . ARE YOU ABUSED, NEGLECTED, OR IN AN UNSAFE ENVIRONMENT? NO . ENDOCRINOLOGY: ARE YOU DIABETIC? NO . OTHER: DO YOU NEED ANY PRESCRIPTIONS? YES . IF YES, PLEASE LIST: ____HYDROCODONE/ACETAMINOPHEN . ANY NEW PROBLEMS WITH YOUR MEDICATIONS? NO . WHEN DID YOU LAST EAT? ____ . WHEN DID YOU LAST DRINK? ____ . WHAT DID YOU LAST DRINK? ____ . NAME OF PERSON DRIVING YOU HOME? ____ . DO YOU HAVE ANY OTHER QUESTIONS OR CONCERNS NO . VITAL SIGNS WT 199 LBS, HT 70 IN, BMI 28.55 INDEX, BP 139/82 MM HG, HR 95 /MIN, RR 18 /MIN, TEMP 97.4 F, OXYGEN SAT % 97%, SAFE IN ENV? (Y/N) YES, NA INITIALS [place] 14:33, REVIEWED BY: HALEIGH. EXAMINATION : PATIENT IS ALERT O X 3 AND COOPERATIVE. THERE IS TENDERNESS IN THE LOW BACK PARASPINAL MUSCLE GROUP. PATIENTS LEFT LEG IS WEAKER THAN HIS RIGHT WITH EXTENSION AND FLEXION. MRI OF THE LUMBAR SPINE DONE ON 08/11/2015 SHOWS A DISC BULGE AT L4-L5 AND L5-S1 AND A LAMINECTOMY DEFECT AT L5-S1. URINE TOX DONE ON 11/30/16 SHOWS CONSISTENT RESULTS WITH THE PATIENTS MEDICATION LIST. ASSESSMENTS LUMBAR POST-LAMINECTOMY SYNDROME - M96.1 (PRIMARY) INTERVERTEBRAL DISC DISORDERS WITH RADICULOPATHY, LUMBAR REGION - M51.16 INTERVERTEBRAL DISC DISORDERS WITH RADICULOPATHY, LUMBOSACRAL REGION - M51.17 TREATMENT LUMBAR POST-LAMINECTOMY SYNDROME REFILL HYDROCODONE-ACETAMINOPHEN TABLET, 10-325 MG, 1 TAB, ORALLY, Q4H PRN PAIN MDD5, 1 MONTH, 150, REFILLS 0 CLINICAL NOTES: WE DISCUSSED SEVERAL ISSUES WITH MR. CURTIS'S PAIN MANAGEMENT CASE. AT THIS TIME THE PATIENT WILL RECEIVE A REFILL OF HYDROCODONE FOR 1 MONTH. PATIENT IS TAKING HYDROCODONE FOR THE SOMATIC PAIN. PATIENT DENIES ABUSING THE MEDICATION AND ONLY USING IT INTENDED FOR PAIN MANAGEMENT. PATIENT DID BRING HIS MEDICATION TODAY AND PATIENT ALSO STATES THAT THE MEDICATION HELPS WITH HIS PAIN RELIEF AND THAT HE WOULD NOT BE ABLE TO FUNCTION WITHOUT IT. URINE TOX DONE ON 11/30/16 SHOWS CONSISTENT RESULTS WITH THE PATIENTS MEDICATION LIST. WE DISCUSSED SEVERAL INTERVENTIONS THAT MAY AID THE PATIENT IN PAIN RELIEF AND AT THIS TIME THE PATIENT DOES NOT WANT TO MOVE FORWARD WITH INJECTIONS. MR. CURTIS IS MORE COMFORTABLE WITH MAINTAINING MEDICATION MANAGEMENT AT THIS TIME BUT WE WILL TALK ABOUT POSSIBLE INTERVENTIONS WITH INJECTION THERAPY IN THE FUTURE. PATIENT WILL FOLLOWUP WITH A UI PROGRAMMER IN 6 WEEKS TO CONTINUE HIS PAIN MANAGEMENT CASE. INSTRUCTIONS WERE GIVEN, QUESTIONS WERE ANSWERED, PATIENT REPORTS UNDERSTANDING AND AGREES WITH THE PLAN. I, AUBREY RUSSELL, DOCUMENTED THE ABOVE INFORMATION ACTING A SCRIBE FOR DR. ROBERT. I HAVE REVIEWED THE ABOVE DOCUMENT, WRITTEN BY AUBREY RUSSELL SCRIBKaela AND I VERIFY THAT IT IS ACCURATE. PROCEDURES PN WORKMANS' COMP OPINION IN YOUR OPINION, WAS THE INCIDENT THAT THE PATIENT DESCRIBED THE COMPETENT MEDICAL CAUSE OF THIS INJURY/ILLNESS? YES ARE THE PATIENT'S COMPLAINTS CONSISTENT WITH HIS/HER HISTORY OF THE INJURY/ILLNESS? YES IS THE PATIENT'S HISTORY OF THE INJURY/ILLNESS CONSISTENT WITH YOUR OBJECTIVE FINDING? YES WHAT IS THE PERCENTAGE OF TEMPORARY IMPAIRMENT? MODERATE TO MARKED = 66.7% IS THE PATIENT WORKING? NO DOCTOR ON SITE: AYAZ COSTELLO MD PROCEDURE CODES FA211 ESTABILISHED PATIENT [facility] CHARGE [id number] OFFICE/OUTPATIENT VISIT EST G8427 DOC MEDS VERIFIED W/PT OR RE G8730 PAIN ASSESS POS TOOL F/U PLAN DOC DISPOSITION & COMMUNICATION FOLLOW UP 6 WEEKS ELECTRONICALLY SIGNED BY AYAZ ROBERT MD ON 01/23/2017 AT 06:59 AM EDT DISCLAIMER : THIS IS A VISIT SUMMARY EXTRACTED FROM THE [employer] CHART. IT IS NOT A COPY OF THE [employer] PROGRESS NOTE. JOIE
== END ==
LOC: M PAIN 14:15
PROVIDERS: ATTEND Anesthesiology
DX: M96.1 Postlaminectomy syndrome, not elsewhere classified (principal); M51.16 Intervertebral disc disorders with radiculopathy, lumbar region; M51.17 Intervertebral disc disorders with radiculopathy, lumbosacral region; G89.29 Other chronic pain; M54.9 Dorsalgia, unspecified; F17.210 Nicotine dependence, cigarettes, uncomplicated; F41.9 Anxiety disorder, unspecified; Z79.891 Long term (current) use of opiate analgesic; Z79.899 Other long term (current) drug therapy

== ENCOUNTER → 2017-03-14 | Outpatient (CLI) | payer OTHER ==
--- NOTE | 2017-04-06 01:43 | ECWPNPC ---
PATIENT NAME: MONICA CURTIS : 1965 GENDER: MALE VISIT DATE: 03/14/2017 DISCHARGE DATE: 03/14/17 1503 VISIT LOCKED DATE TIME: PHYSICIAN: HARLEEN ASHLEY RESOURCE: HARLEEN ASHLEY REASON FOR APPOINTMENT 1. ,[facility] HISTORY OF PRESENT ILLNESS HISTORY OF PRESENT ILLNESS: PAIN THE PATIENT DESCRIBES THE PAIN... FALL RISK SCREENING: SCREENING :NO FALLS IN THE PAST YEAR TODAY'S VISIT: NOTES: (DATE OF INJURY - 04/17/10) FOLLOWUP FOR LOW BACK PAIN.RATES PAIN TODAY 5-6/10. IS NOTING PAIN RADIATING INTO BOTH LEGS, RIGHT SIDE TO THE FOOT/ANKLE AND LEFT TO THE THIGH. NO RECENT FALLS. IS STILL HAVING NUMBNESS, TINGLING AND BURNING RIGHT GREATER THAN LEFT. CAN NOT SLEEP DUE TO PAIN.. CURRENT MEDICATIONS TAKING MULTIVITAMINS TABLET DIRECTED ORALLY DAILY TAKING PROTONIX 40 MG TABLET DELAYED RELEASE DIRECTED ORALLY ONCE DAILY TAKING ZOLOFT 175 TABLET 1 TABLET ORALLY ONCE A DAY TAKING ASMANEX HFA 100 MCG/ACT AEROSOL 2 PUFFS IN THE EVENING INHALATION ONCE A DAY NEEDED TAKING VOLTAREN 1 % GEL ONE APPLICATION TRANSDERMAL APPLY 4 GRAMS TO LOW BACK Q 6 HRS FOR PAIN TAKING VENTOLIN HFA 108 (90 BASE) MCG/ACT AEROSOL SOLUTION 2 PUFFS NEEDED INHALATION EVERY 4 HRS TAKING HYDROCODONE-ACETAMINOPHEN 10-325 MG TABLET 1 TAB ORALLY Q4H PRN PAIN MDD5 TAKING CIALIS 20 MG TABLET 1 TABLET ORALLY DAILY DIRECTED NOT-TAKING AMITRIPTYLINE HCL 25 MG TABLET 1 TABLET ORALLY ONCE A DAY NOT-TAKING CIALIS 20 MG TABLET 1 TABLET ORALLY MEDICATION LIST REVIEWED AND RECONCILED WITH THE PATIENT PAST MEDICAL HISTORY ERECTILE DYSFUNCTION ANXIETY ESOPHAGEAL REFLUX NASAL POLYPS HYPERLIPIDEMIA SLEEP APNEA RHEUMATIOD ARTHRITIS ALLERGIES N.K.D.A. SURGICAL HISTORY CARPAL TUNNEL RELEASE CYSTOSCOPY GENITAL WARTS LAMINECTOMY 2011 TURP SOCIAL HISTORY GENERAL: TOBACCO USE ARE YOU A:CURRENT SMOKER ARE YOU INTERESTED IN QUITTING?NOT READY TO QUIT STATES HE HAS TRIED TO QUIT BUT CAN'T. HE HAS TRIED CHANIX, THE GUM, HYPNOSIS, STOPPING COLD [place] AND NOTHING HAS WORKED. COUNSELED THE PATIENT ON SMOKING EFFECTS, EDUCATION [id number]/07/2017 HOW MANY CIGARETTES A DAY DO YOU SMOKE?11-20 HOW SOON AFTER YOU WAKE UP DO YOU SMOKE YOUR FIRST CIGARETTE?WITHIN 5 MIN HOW OFTEN DO YOU SMOKE CIGARETTES?EVERY DAY PATIENT COUNSELED ON THE DANGERS OF TOBACCO USE AND URGED TO QUIT:03/14/2017 CAFFEINE CAFFEINE USE?YES DAILY LEARNING BARRIERS / SPECIAL NEEDS ORIENTED TO PLAN OF CARE: PATIENT, PAIN MANAGEMENT PATIENT, ORIENTED TO PLAN OF CARE: PATIENT, PAIN MANAGEMENT PATIENT. NEW PATIENT PAIN DIARY TODAY'S VISIT NOTES, FROM 0-10, WHAT LEVEL IS YOUR PAIN TODAY? 0. PAIN CLINIC PFS, CLERGY, PUBLIC HEALTH REFERRALS HAS THE PATIENT BEEN EDUCATED REGARDING HIS/HER PLAN OF CARE?YES HAS THE PATIENT BEEN EDUCATED REGARDING PAIN, THE RISK FOR PAIN, THE IMPORTANCE OF EFFECTIVE PAIN MANAGEMENT, AND THE PAIN ASSESSMENT PROCESS?YES [facility] DIRECTIVES HEALTH CARE PROXY?NO WOULD YOU LIKE MORE INFORMATION?NO DO YOU HAVE A DNR?NO WOULD YOU LIKE MORE INFORMATION?NO LIVING WILL?NO WOULD YOU LIKE MORE INFORMATION?NO POWER OF PONY RIDE OPERATOR?NO WOULD YOU LIKE MORE INFORMATION?NO REVIEWED, UPDATED.[facility].12/12/14. HOSPITALIZATION/MAJOR DIAGNOSTIC PROCEDURE SURGERIES REVIEW OF SYSTEMS REVIEWED BY: PROVIDER: . CONSTITUTIONAL: ANY CHANGE IN YOUR MEDICAL CONDITION? NO . CHILLS NO . FEVER NO . INFECTION: DO YOU HAVE NEW INFECTIONS? NO . DO YOU HAVE HISTORY OF MRSA? NO . MUSCULOSKELETAL: ANY NEW PATTERNS OF PAIN OR NUMBNESS? NO . GASTROENTEROLOGY: ANY NEW CHANGE IN BOWEL CONTROL? NO . GENITOURINARY: ANY NEW CHANGE IN BLADDER CONTROL? NO . IS THERE A CHANCE YOU COULD BE ? NO . HEMATOLOGY/LYMPH: DO YOU TAKE ANY BLOOD THINNERS? (FOR EXAMPLE- COUMADIN, PLAVIX, AGGRENOX, PLATEL, PRADAXA, OR XARELTO) NO . WHEN WAS YOUR LAST DOSE? DATE: TIME: . NEUROLOGY: HAVE YOU FALLEN IN THE PAST 6 MONTHS? YES . ANY NEW EXTREMITY NUMBNESS OR WEAKNESS? NO . CARDIOLOGY: DO YOU HAVE A PACEMAKER OR DEFIBRILLATOR? NO . RESPIRATORY: HAVE YOU BEEN SICK IN THE PAST WEEK? NO . FEVER NO . FLU LIKE SYMPTOMS? NO . COUGH NO . INTEGUMENTARY: DO YOU HAVE ANY RASHES OR OPEN SORES? NO . ALLERGIC/IMMUNO: ARE YOU ALLERGIC TO SHELLFISH OR IV DYE? NO . ANY NEW ALLERGIES? NO . PSYCHIATRIC: DO YOU HAVE THOUGHTS OF HURTING YOURSELF OR SOMEONE ELSE? NO . ARE YOU ABUSED, NEGLECTED, OR IN AN UNSAFE ENVIRONMENT? NO . ENDOCRINOLOGY: ARE YOU DIABETIC? NO . OTHER: DO YOU NEED ANY PRESCRIPTIONS? YES . IF YES, PLEASE LIST: HYDROCODONE . ANY NEW PROBLEMS WITH YOUR MEDICATIONS? NO . WHEN DID YOU LAST EAT? ____ . WHEN DID YOU LAST DRINK? ____ . WHAT DID YOU LAST DRINK? ____ . NAME OF PERSON DRIVING YOU HOME? ____ . DO YOU HAVE ANY OTHER QUESTIONS OR CONCERNS NO . VITAL SIGNS WT 207.8 LBS, HT 70 IN, BMI 29.81 INDEX, BP 134/76 MM HG, HR 96 /MIN, RR 16 /MIN, TEMP 98.0 F, OXYGEN SAT % 96%, NA INITIALS TL 1413, REVIEWED BY: LS. EXAMINATION GENERAL EXAMINATION: MUSCULOSKELETAL:MUSCLE STRENGTH TESTING 5/5 LEFT LE, 4+/5 RLE WITH POOR PLANTAR EXT/FLEXION. . ASSESSMENTS LUMBAR POST-LAMINECTOMY SYNDROME - M96.1 (PRIMARY) INTERVERTEBRAL DISC DISORDERS WITH RADICULOPATHY, LUMBAR REGION - M51.16 INTERVERTEBRAL DISC DISORDERS WITH RADICULOPATHY, LUMBOSACRAL REGION - M51.17 TREATMENT LUMBAR POST-LAMINECTOMY SYNDROME REFILL HYDROCODONE-ACETAMINOPHEN TABLET, 10-325 MG, 1 TAB, ORALLY, Q4H PRN PAIN MDD5, 1 MONTH, 150, REFILLS 0 NOTES: CONTINUE CURRENT MEDS - NORCO FOR PAIN CONTROL. UPDATE NARCOTIC AGREEMENT TODAY. PROCEDURES PN WORKMANS' COMP OPINION IN YOUR OPINION, WAS THE INCIDENT THAT THE PATIENT DESCRIBED THE COMPETENT MEDICAL CAUSE OF THIS INJURY/ILLNESS? YES ARE THE PATIENT'S COMPLAINTS CONSISTENT WITH HIS/HER HISTORY OF THE INJURY/ILLNESS? YES IS THE PATIENT'S HISTORY OF THE INJURY/ILLNESS CONSISTENT WITH YOUR OBJECTIVE FINDING? YES WHAT IS THE PERCENTAGE OF TEMPORARY IMPAIRMENT? MODERATE TO MARKED = 66.7% IS THE PATIENT WORKING? NO DOCTOR ON SITE: AYAZ COSTELLO MD PROCEDURE CODES FA211 ESTABILISHED PATIENT [facility] FACILITY CHARGE DISPOSITION & COMMUNICATION FOLLOW UP 2 MONTHS (REASON: WC LOW BACK) ELECTRONICALLY SIGNED BY MAJOR AVILA ON 04/04/2017 AT 08:32 AM EST DISCLAIMER : THIS IS A VISIT SUMMARY EXTRACTED FROM THE [employer] CHART. IT IS NOT A COPY OF THE [employer] PROGRESS NOTE. JOIE
== END ==
LOC: M PAIN 14:00
PROVIDERS: ATTEND Nurse Practitioner Family
DX: G89.29 Other chronic pain (principal); M96.1 Postlaminectomy syndrome, not elsewhere classified; M51.16 Intervertebral disc disorders with radiculopathy, lumbar region; M51.17 Intervertebral disc disorders with radiculopathy, lumbosacral region; N52.9 Male erectile dysfunction, unspecified; F41.9 Anxiety disorder, unspecified; K21.9 Gastro-esophageal reflux disease without esophagitis; E78.5 Hyperlipidemia, unspecified; G47.30 Sleep apnea, unspecified; M06.9 Rheumatoid arthritis, unspecified; J33.9 Nasal polyp, unspecified; F17.210 Nicotine dependence, cigarettes, uncomplicated; Z79.891 Long term (current) use of opiate analgesic; Z79.899 Other long term (current) drug therapy

== ENCOUNTER → 2017-06-07 | Outpatient (CLI) | payer OTHER | LOC: M PAIN 14:00 | DX: M96.1 Postlaminectomy syndrome, not elsewhere classified (principal); M51.16 Intervertebral disc disorders with radiculopathy, lumbar region; M51.17 Intervertebral disc disorders with radiculopathy, lumbosacral region; F41.9 Anxiety disorder, unspecified; K21.9 Gastro-esophageal reflux disease without esophagitis; E78.5 Hyperlipidemia, unspecified; G47.30 Sleep apnea, unspecified; M06.9 Rheumatoid arthritis, unspecified; F17.210 Nicotine dependence, cigarettes, uncomplicated; Z79.891 Long term (current) use of opiate analgesic; Z79.899 Other long term (current) drug therapy; Z88.5 Allergy status to narcotic agent; Z98.890 Other specified postprocedural states | CPT/HCPCS: G0463 ==

== ENCOUNTER → 2017-10-09 | Outpatient (CLI) | payer OTHER | LOC: M PAIN 14:00 | DX: M96.1 Postlaminectomy syndrome, not elsewhere classified (principal); M51.16 Intervertebral disc disorders with radiculopathy, lumbar region; M51.17 Intervertebral disc disorders with radiculopathy, lumbosacral region; F41.9 Anxiety disorder, unspecified; K21.9 Gastro-esophageal reflux disease without esophagitis; E78.5 Hyperlipidemia, unspecified; G47.30 Sleep apnea, unspecified; M06.9 Rheumatoid arthritis, unspecified; F17.210 Nicotine dependence, cigarettes, uncomplicated; Z79.891 Long term (current) use of opiate analgesic; Z79.899 Other long term (current) drug therapy; Z88.5 Allergy status to narcotic agent | CPT/HCPCS: G0463 ==

== ENCOUNTER → 2017-11-21 | Outpatient (CLI) | payer OTHER | LOC: M PAIN 14:30 | DX: M96.1 Postlaminectomy syndrome, not elsewhere classified (principal); M51.16 Intervertebral disc disorders with radiculopathy, lumbar region; M51.17 Intervertebral disc disorders with radiculopathy, lumbosacral region; F41.9 Anxiety disorder, unspecified; K21.9 Gastro-esophageal reflux disease without esophagitis; E78.5 Hyperlipidemia, unspecified; G47.30 Sleep apnea, unspecified; F17.210 Nicotine dependence, cigarettes, uncomplicated; Z79.891 Long term (current) use of opiate analgesic; Z79.899 Other long term (current) drug therapy; Z88.5 Allergy status to narcotic agent | CPT/HCPCS: G0463 ==

== ENCOUNTER → 2018-01-02 | Outpatient (CLI) | payer OTHER | LOC: M PAIN 13:00 | DX: M96.1 Postlaminectomy syndrome, not elsewhere classified (principal); M51.16 Intervertebral disc disorders with radiculopathy, lumbar region; M51.17 Intervertebral disc disorders with radiculopathy, lumbosacral region; F41.9 Anxiety disorder, unspecified; K21.9 Gastro-esophageal reflux disease without esophagitis; E78.5 Hyperlipidemia, unspecified; G47.00 Insomnia, unspecified; M06.9 Rheumatoid arthritis, unspecified; F17.210 Nicotine dependence, cigarettes, uncomplicated; Z79.891 Long term (current) use of opiate analgesic; Z79.899 Other long term (current) drug therapy; Z88.5 Allergy status to narcotic agent | CPT/HCPCS: G0463 ==

== ENCOUNTER → 2018-03-08 | Outpatient (CLI) | payer OTHER | LOC: M PAIN 13:30 | DX: M96.1 Postlaminectomy syndrome, not elsewhere classified (principal); M51.16 Intervertebral disc disorders with radiculopathy, lumbar region; M51.17 Intervertebral disc disorders with radiculopathy, lumbosacral region; N52.9 Male erectile dysfunction, unspecified; F41.9 Anxiety disorder, unspecified; K21.9 Gastro-esophageal reflux disease without esophagitis; E78.5 Hyperlipidemia, unspecified; G47.30 Sleep apnea, unspecified; F17.210 Nicotine dependence, cigarettes, uncomplicated; M06.9 Rheumatoid arthritis, unspecified; F32.9 Major depressive disorder, single episode, unspecified; J33.9 Nasal polyp, unspecified; Z79.891 Long term (current) use of opiate analgesic; Z79.899 Other long term (current) drug therapy; Z88.5 Allergy status to narcotic agent; Z88.8 Allergy status to other drugs, medicaments and biological substances | CPT/HCPCS: G0463 ==

== ENCOUNTER → 2018-05-11 | Outpatient (CLI) | payer OTHER ==
[~2018-05-11] MED LIST changes: -PANT40TA2 PO; +PANT40TA3 PO; +TIZA4CAP PO; -TIZA4CAP3 PO
--- NOTE | 2018-05-28 00:21 | ECWPNPC ---
PATIENT NAME: MONICA CURTIS : 1965 GENDER: MALE VISIT DATE: 05/11/2018 DISCHARGE DATE: 05/11/18 1546 VISIT LOCKED DATE TIME: PHYSICIAN: AYAZ ROBERT MD RESOURCE: AYAZ ROBERT MD REASON FOR APPOINTMENT 1. WC BACK PAIN HISTORY OF PRESENT ILLNESS HISTORY OF PRESENT ILLNESS: PAIN THE PATIENT DESCRIBES THE PAIN... 53 YEAR OLD MALE PATIENT WITH A HISTORY OF CHRONIC LOW BACK PAIN. THE PATIENT DESCRIBES THE PAIN BURNING, SHARP, STABBING, SHOOTING, AND CONTINUOUS WITH A PAIN SCORE OF 5-9/10 DEPENDING ON PHYSICAL ACTIVITY. THE PATIENT WAS HURT IN A WORK RELATED INJURY ON 04/17/2010 WHILE WORKING A DEPARTMENTAL [employer] FOR [employer] WHEN HE WAS CHANGING A TIRE ON A TRUCK AND INJURED HIS BACK. THE PATIENT HAD SURGERY IN 2010 AND SAYS THAT THE PAIN PERSISTED AFTER SURGERY. THE PATIENT STATES THAT HE HAS TRIED PHYSICAL THERAPY AND INJECTION THERAPY IN THE PAST, BUT NEITHER HELPED HIM. THE PATIENT SAYS THAT HE HAS USED A TENS UNIT IN THE PAST AND THAT HAS GIVEN HIM SOME RELIEF. THE PATIENT IS CURRENTLY USING HYDROCODONE MDD5 FOR THE SOMATIC PAIN. THE PATIENT SAYS THAT HE HAS TRIED USING GABAPENTIN IN THE PAST, BUT IT MADE HIM SUICIDAL. PATIENT DENIES UNEXPLAINABLE WEIGHT LOSS, FEVER, CHILLS, NEW CHANGES ON HIS URINARY OR BOWEL CONTROL. FALL RISK SCREENING: SCREENING :TWO OR MORE FALLS WITHOUT INJURY IN THE PAST YEAR CURRENT MEDICATIONS TAKING MULTIVITAMINS TABLET DIRECTED ORALLY DAILY TAKING PROTONIX 40 MG TABLET DELAYED RELEASE DIRECTED ORALLY ONCE DAILY TAKING ZOLOFT 175 TABLET 1 TABLET ORALLY ONCE A DAY TAKING ASMANEX HFA 100 MCG/ACT AEROSOL 2 PUFFS IN THE EVENING INHALATION ONCE A DAY NEEDED TAKING VENTOLIN HFA 108 (90 BASE) MCG/ACT AEROSOL SOLUTION 2 PUFFS NEEDED INHALATION EVERY 4 HRS TAKING AMBIEN 10 MG TABLET 1 TABLET AT BEDTIME ORALLY ONCE A DAY TAKING VOLTAREN 1 % GEL ONE APPLICATION TRANSDERMAL APPLY 4 GRAMS TO LOW BACK Q 6 HRS FOR PAIN TAKING PRAMIPEXOLE DIHYDROCHLORIDE 0.25 MG TABLET 1 TABLET BEFORE BEDTIME ORALLY BID, NOTES: UNSURE OF DOSE TAKING HYDROCODONE-ACETAMINOPHEN 10-325 MG TABLET 1 TAB ORALLY Q4H PRN PAIN MDD5 DISCONTINUED CIALIS 20 MG TABLET 1 TABLET ORALLY DAILY DIRECTED DISCONTINUED AMITRIPTYLINE HCL 25 MG TABLET 1 TABLET ORALLY ONCE A DAY DISCONTINUED CIALIS 20 MG TABLET 1 TABLET ORALLY MEDICATION LIST REVIEWED AND RECONCILED WITH THE PATIENT PAST MEDICAL HISTORY ERECTILE DYSFUNCTION ANXIETY ESOPHAGEAL REFLUX NASAL POLYPS HYPERLIPIDEMIA SLEEP APNEA RHEUMATIOD ARTHRITIS DEPRESSION URINARY INCONTINENCE ALLERGIES MORPHINE: DIZZY/NAUSEA: SIDE EFFECTS GABAPENTIN: CONFUSION: SIDE EFFECTS SURGICAL HISTORY CARPAL TUNNEL RELEASE CYSTOSCOPY GENITAL WARTS LAMINECTOMY 2010 TURP RIGHT SHOULDER SURGERY 04/2017 FAMILY HISTORY FATHER: 77 YRS, DIAGNOSED WITH HEART DISEASE MOTHER: 67 YRS, BRAIN CANCER 2 SISTER(S) - HEALTHY. 1 SISTER HAD CA ON BLOOD THINNERS. SOCIAL HISTORY GENERAL: TOBACCO USE ARE YOU A:CURRENT SMOKER ARE YOU INTERESTED IN QUITTING?READY TO QUIT STATES HE HAS TRIED TO QUIT BUT CAN'T. HE HAS TRIED CHANIX, THE GUM, HYPNOSIS, STOPPING COLD TURKEY AND NOTHING HAS WORKED. HOW MANY CIGARETTES A DAY DO YOU SMOKE?11-20 HOW SOON AFTER YOU WAKE UP DO YOU SMOKE YOUR FIRST CIGARETTE?WITHIN 5 MIN HOW OFTEN DO YOU SMOKE CIGARETTES?EVERY DAY PATIENT COUNSELED ON THE DANGERS OF TOBACCO USE AND URGED TO QUIT:05/11/2018 LUNG CANCER SCREENING PFS REFERRAL NEEDED? NO, CLERGY REFERRAL NEEDED? NO, PUBLIC HEALTH REFERRAL NEEDED? NO, WAS THE PROVIDER NOTIFIED OF ANY PERTINENT INFO? NO, HAS THE PATIENT BEEN EDUCATED REGARDING HIS/HER PLAN OF CARE? YES, HAS THE PATIENT BEEN EDUCATED REGARDING PAIN, THE RISK FOR PAIN, THE IMPORTANCE OF EFFECTIVE PAIN MANAGEMENT, AND THE PAIN ASSESSMENT PROCESS? YES. BMI CARE GOAL FOLLOW-UP PFS REFERRAL NEEDED? NO, CLERGY REFERRAL NEEDED? NO, PUBLIC HEALTH REFERRAL NEEDED? NO, WAS THE PROVIDER NOTIFIED OF ANY PERTINENT INFO? NO, HAS THE PATIENT BEEN EDUCATED REGARDING HIS/HER PLAN OF CARE? YES, HAS THE PATIENT BEEN EDUCATED REGARDING PAIN, THE RISK FOR PAIN, THE IMPORTANCE OF EFFECTIVE PAIN MANAGEMENT, AND THE PAIN ASSESSMENT PROCESS? YES. ALCOHOL SCREENING DID YOU HAVE A DRINK CONTAINING ALCOHOL IN THE PAST YEAR?YES HOW OFTEN DID YOU HAVE A DRINK CONTAINING ALCOHOL IN THE PAST YEAR?FOUR OR MORE TIMES A WEEK (4 POINTS) HOW MANY DRINKS DID YOU HAVE ON A TYPICAL DAY WHEN YOU WERE DRINKING IN THE PAST YEAR?1 OR 2 (0 POINTS) HOW OFTEN DID YOU HAVE SIX OR MORE DRINKS ON ONE OCCASION IN THE PAST YEAR?LESS THAN MONTHLY (1 POINT) POINTS5 INTERPRETATIONPOSITIVE RECREATIONAL DRUG USE DRUG USE?NO CAFFEINE CAFFEINE USE?YES DAILY HOW OFTEN AND HOW MUCH? 1 CUP COFFEE PER DAY LATTER-DAY [id number] OTHER ZOROASTRIAN LANGUAGE LANGUAGES SPOKEN:LIBYAN LEARNING BARRIERS / SPECIAL NEEDS ORIENTED TO PLAN OF CARE: PATIENT, PAIN MANAGEMENT PATIENT, ORIENTED TO PLAN OF CARE: PATIENT, PAIN MANAGEMENT PATIENT. DIET: REGULAR. EXERCISE: WALKS. MARITAL STATUS: ., . NEW PATIENT PAIN DIARY TODAY'S VISITNOTES FROM 0-10, WHAT LEVEL IS YOUR PAIN TODAY?7 PAIN CLINIC PFS, CLERGY, PUBLIC HEALTH REFERRALS HAS THE PATIENT BEEN EDUCATED REGARDING HIS/HER PLAN OF CARE?YES HAS THE PATIENT BEEN EDUCATED REGARDING PAIN, THE RISK FOR PAIN, THE IMPORTANCE OF EFFECTIVE PAIN MANAGEMENT, AND THE PAIN ASSESSMENT PROCESS?YES ADVANCE DIRECTIVE ADVANCE DIRECTIVE DISCUSSED WITH PATIENT:YES DECLINED INFORMATION 03/08/18 JS REVIEWED, UPDATED.[facility].12/12/14REVIEWED 08/07/17 BV 1430REVIEWED WITH PT, 01/02/18 1330 LASREVIEWED WITH PATIENT 03/08/18 1334 JS. HOSPITALIZATION/MAJOR DIAGNOSTIC PROCEDURE SURGERIES REVIEW OF SYSTEMS REVIEWED BY: PROVIDER: AYAZ ROBERT MD . CONSTITUTIONAL: ANY CHANGE IN YOUR MEDICAL CONDITION? NO . CHILLS NO . FEVER NO . INFECTION: DO YOU HAVE NEW INFECTIONS? NO . DO YOU HAVE HISTORY OF MRSA? NO . MUSCULOSKELETAL: ANY NEW PATTERNS OF PAIN OR NUMBNESS? YES . GASTROENTEROLOGY: ANY NEW CHANGE IN BOWEL CONTROL? NO . GENITOURINARY: ANY NEW CHANGE IN BLADDER CONTROL? YES, INCREASE LACK OF BLADDER CONTROL . IS THERE A CHANCE YOU COULD BE ? NO . HEMATOLOGY/LYMPH: DO YOU TAKE ANY BLOOD THINNERS? (FOR EXAMPLE- COUMADIN, PLAVIX, AGGRENOX, PLATEL, PRADAXA, OR XARELTO) NO . WHEN WAS YOUR LAST DOSE? DATE: TIME: . NEUROLOGY: HAVE YOU FALLEN IN THE PAST 6 MONTHS? YES . ANY NEW EXTREMITY NUMBNESS OR WEAKNESS? YES . CARDIOLOGY: DO YOU HAVE A PACEMAKER OR DEFIBRILLATOR? NO . RESPIRATORY: HAVE YOU BEEN SICK IN THE PAST WEEK? NO . FEVER NO . FLU LIKE SYMPTOMS? NO . COUGH NO . INTEGUMENTARY: DO YOU HAVE ANY RASHES OR OPEN SORES? YES . ALLERGIC/IMMUNO: ARE YOU ALLERGIC TO SHELLFISH OR IV DYE? NO . ANY NEW ALLERGIES? NO . PSYCHIATRIC: DO YOU HAVE THOUGHTS OF HURTING YOURSELF OR SOMEONE ELSE? NO . ARE YOU ABUSED, NEGLECTED, OR IN AN UNSAFE ENVIRONMENT? NO . ENDOCRINOLOGY: ARE YOU DIABETIC? NO . OTHER: DO YOU NEED ANY PRESCRIPTIONS? YES . IF YES, PLEASE LIST: ____HYDROCODONE . ANY NEW PROBLEMS WITH YOUR MEDICATIONS? NO . WHEN DID YOU LAST EAT? ____ . WHEN DID YOU LAST DRINK? ____ . WHAT DID YOU LAST DRINK? ____ . NAME OF PERSON DRIVING YOU HOME? ____ . DO YOU HAVE ANY OTHER QUESTIONS OR CONCERNS NO . VITAL SIGNS WT 199 LBS, HT 70 IN, BMI 28.55 INDEX, BP 132/81 MM HG, HR 115 /MIN, RR 18 /MIN, TEMP 98.0 F, OXYGEN SAT % 98%, SAFE IN ENV? (Y/N) KG, NA INITIALS AW 1409, REVIEWED BY: KG. EXAMINATION GENERAL EXAMINATION: PATIENT IS ALERT O X 3 AND COOPERATIVE. ANTALGIC GAIT. LEFT LEG IS WEAKER AT EXTENSION AND FLEXION. STRAIGHT LEG RAISE OF THE LEFT LEG IS POSITIVE AT 45 DEGREES FOR RADICULOPATHY. MRI OF THE LUMBAR SPINE DONE ON 08/11/2015 SHOWS BULGING DISCS AT MULTIPLE LEVELS AND A LAMINECTOMY DEFECT AT L5-S1. ASSESSMENTS LUMBAR POST-LAMINECTOMY SYNDROME - M96.1 (PRIMARY) INTERVERTEBRAL DISC DISORDER WITH RADICULOPATHY OF LUMBAR REGION - M51.16 TREATMENT LUMBAR POST-LAMINECTOMY SYNDROME REFILL HYDROCODONE-ACETAMINOPHEN TABLET, 10-325 MG, 1 TAB, ORALLY, Q4H PRN PAIN MDD5, 1 MONTH, 150, REFILLS 0 CLINICAL NOTES: WE DISCUSSED SEVERAL ISSUES WITH MR. CURTIS'S PAIN MANAGEMENT CASE. I WOULD LIKE TO REQUEST AN INTERFERENTIAL TENS UNIT TO SEE IF I CAN INCREASE HIS MOBILITY AND FUNCTIONALITY. THE PATIENT WILL CONTINUE USING THE HYDROCODONE FOR SOMATIC PAIN BECAUSE HE STATES IT IS THE ONLY THING THAT HAS HELPED HIS PAIN. THE PATIENT WILL CONSIDER USING LONG ACTING HYDROCODONE SO WE ARE ABLE TO REDUCE THE AMOUNT FROM 5 TABLETS TO 3 TABLETS. WE DISCUSSED CONSIDERING CYMBALTA INSTEAD OF ZOLOFT, BUT THE PATIENT EXPRESSED THAT HE DOES NOT WANT TO CHANGE THE MEDICATION BECAUSE IT TOOK HIM A LONG TIME TO FIND SOMETHING THAT HELPED HIS DEPRESSION. THE PATIENT BROUGHT HIS MEDICATION WITH HIM TO TODAY'S VISIT, SO WE WILL DO A PILL COUNTING. ISTOP _[id number] WAS REVIEWED. URINE TOXICOLOGY DONE ON 10/09/2017 SHOWS CONCURRENT RESULTS AND WE WILL REPEAT IT TODAY. THE PATIENT WILL FOLLOW UP IN 2 MONTHS. INSTRUCTIONS WERE GIVEN, QUESTIONS WERE ANSWERED, PATIENT REPORTS UNDERSTANDING AND AGREES WITH THE PLAN. I, NAILA HUGHES, DOCUMENTED THE ABOVE INFORMATION ACTING A SCRIBE FOR DR. ROBERT. I HAVE REVIEWED THE ABOVE DOCUMENT, WRITTEN BY NAILA PIERREIBKaela AND I VERIFY THAT IT IS ACCURATE. PROCEDURES PN WORKMANS' COMP OPINION IN YOUR OPINION, WAS THE INCIDENT THAT THE PATIENT DESCRIBED THE COMPETENT MEDICAL CAUSE OF THIS INJURY/ILLNESS? YES ARE THE PATIENT'S COMPLAINTS CONSISTENT WITH HIS/HER HISTORY OF THE INJURY/ILLNESS? YES IS THE PATIENT'S HISTORY OF THE INJURY/ILLNESS CONSISTENT WITH YOUR OBJECTIVE FINDING? YES WHAT IS THE PERCENTAGE OF TEMPORARY IMPAIRMENT? MODERATE TO MARKED = 66.7% IS THE PATIENT WORKING? NO DOCTOR ON SITE: AYAZ COSTELLO MD PROCEDURE CODES FA211 ESTABILISHED PATIENT [facility] FACILITY CHARGE G8427 CURRENT MEDS W/DOSAGES DOCUMENTED G8730 PAIN ASSESS POS TOOL F/U PLAN DOC DISPOSITION & COMMUNICATION FOLLOW UP 2 MONTHS ELECTRONICALLY SIGNED BY AYAZ ROBERT MD, MD ON 05/27/2018 AT 10:41 AM EST DISCLAIMER : THIS IS A VISIT SUMMARY EXTRACTED FROM THE [employer] CHART. IT IS NOT A COPY OF THE [employer] ? IO PROGRESS NOTE. JOIE
== END ==
LOC: M PAIN 14:00
PROVIDERS: ATTEND Anesthesiology
DX: M96.1 Postlaminectomy syndrome, not elsewhere classified (principal); M51.16 Intervertebral disc disorders with radiculopathy, lumbar region; K21.9 Gastro-esophageal reflux disease without esophagitis; E78.5 Hyperlipidemia, unspecified; M06.9 Rheumatoid arthritis, unspecified; F32.9 Major depressive disorder, single episode, unspecified; F41.9 Anxiety disorder, unspecified; G47.30 Sleep apnea, unspecified; F17.210 Nicotine dependence, cigarettes, uncomplicated; Z79.891 Long term (current) use of opiate analgesic; Z79.899 Other long term (current) drug therapy; Z88.5 Allergy status to narcotic agent; Z88.8 Allergy status to other drugs, medicaments and biological substances

== ENCOUNTER → 2018-07-20 | Outpatient (CLI) | payer OTHER ==
--- NOTE | 2018-08-03 02:01 | ECWPNPC ---
PATIENT NAME: MONICA CURTIS : 1965 GENDER: MALE VISIT DATE: 07/20/2018 DISCHARGE DATE: 07/20/18 1526 VISIT LOCKED DATE TIME: PHYSICIAN: AYAZ ROBERT MD RESOURCE: AYAZ ROBERT MD REASON FOR APPOINTMENT 1. W/C BACK HISTORY OF PRESENT ILLNESS HISTORY OF PRESENT ILLNESS: PAIN THE PATIENT DESCRIBES THE PAIN... 53 YEAR OLD MALE PATIENT WITH A HISTORY OF CHRONIC LOW BACK PAIN. THE PATIENT DESCRIBES THE PAIN BURNING, SHARP, STABBING, SHOOTING, AND CONTINUOUS WITH A PAIN SCORE OF 5-8/10 DEPENDING ON PHYSICAL ACTIVITY. THE PATIENT WAS HURT IN A WORK RELATED INJURY ON 04/17/2010 WHILE WORKING FOR [employer] A [employer] WHEN HE WAS CHANGING A TIRE UNDER A TRUCK AND INJURED HIS BACK. THE PATIENT SAYS THAT THE PAIN STARTS IN HIS LOW BACK AND RADIATES DOWN INTO HIS LEGS. THE PATIENT IS CURRENTLY USING HYDROCODONE 5 TABLETS PER DAY TO AID IN PAIN RELIEF. THE PATIENT SAYS THAT HE HAS TRIED NSAIDS SUCH IBUPROFEN, ASPIRIN, ALEVE, AND MOBIC IN THE PAST AND THEY HAVE NOT HELPED, BUT VOLTAREN GEL HAS HELPED. PATIENT DENIES UNEXPLAINABLE WEIGHT LOSS, FEVER, CHILLS, NEW CHANGES ON HIS URINARY OR BOWEL CONTROL. FALL RISK SCREENING: SCREENING : NO FALLS IN THE PAST YEAR. CURRENT MEDICATIONS TAKING MULTIVITAMINS TABLET DIRECTED ORALLY DAILY TAKING PROTONIX 40 MG TABLET DELAYED RELEASE DIRECTED ORALLY ONCE DAILY TAKING ZOLOFT 175 TABLET 1 TABLET ORALLY ONCE A DAY TAKING ASMANEX HFA 100 MCG/ACT AEROSOL 2 PUFFS IN THE EVENING INHALATION ONCE A DAY NEEDED TAKING VENTOLIN HFA 108 (90 BASE) MCG/ACT AEROSOL SOLUTION 2 PUFFS NEEDED INHALATION EVERY 4 HRS TAKING AMBIEN 10 MG TABLET 1 TABLET AT BEDTIME ORALLY ONCE A DAY TAKING VOLTAREN 1 % GEL ONE APPLICATION TRANSDERMAL APPLY 4 GRAMS TO LOW BACK Q 6 HRS FOR PAIN, NOTES: RAN OUT TAKING PRAMIPEXOLE DIHYDROCHLORIDE 0.25 MG TABLET 1 TABLET BEFORE BEDTIME ORALLY BID, NOTES: UNSURE OF DOSE TAKING HYDROCODONE-ACETAMINOPHEN 10-325 MG TABLET 1 TAB ORALLY Q4H PRN PAIN MDD5 TAKING MELATONIN 10 MG TABLET 2 TABLETS IN THE EVENING NEEDED WITH FOOD ORALLY BEFORE BEDTIME TAKING RANITIDINE 1 TAB ORAL BEFORE BEDTIME MEDICATION LIST REVIEWED AND RECONCILED WITH THE PATIENT PAST MEDICAL HISTORY ERECTILE DYSFUNCTION ANXIETY ESOPHAGEAL REFLUX NASAL POLYPS HYPERLIPIDEMIA SLEEP APNEA RHEUMATIOD ARTHRITIS DEPRESSION URINARY INCONTINENCE ALLERGIES MORPHINE: DIZZY/NAUSEA - SIDE EFFECTS GABAPENTIN: CONFUSION - SIDE EFFECTS SURGICAL HISTORY CARPAL TUNNEL RELEASE CYSTOSCOPY GENITAL WARTS LAMINECTOMY 2011 TURP RIGHT SHOULDER SURGERY 04/2017 FAMILY HISTORY FATHER: 77 YRS, DIAGNOSED WITH HEART DISEASE MOTHER: 67 YRS, BRAIN CANCER 2 SISTER(S) - HEALTHY. 1 SISTER HAD DE ON BLOOD THINNERS. SOCIAL HISTORY GENERAL: TOBACCO USE ARE YOU A:CURRENT SMOKER ARE YOU INTERESTED IN QUITTING?READY TO QUIT STATES HE HAS TRIED TO QUIT BUT CAN'T. HE HAS TRIED CHANIX, THE GUM, HYPNOSIS, STOPPING COLD TURKEY AND NOTHING HAS WORKED. PREVIOUS QUIT ATTEMPTS?YES, WITHIN THE LAST 6 MONTHS. COUNSELED THE PATIENT ON TOBACCO USE, CESSATION [id number] HOW MANY CIGARETTES A DAY DO YOU SMOKE?11-20 HOW SOON AFTER YOU WAKE UP DO YOU SMOKE YOUR FIRST CIGARETTE?WITHIN 5 MIN HOW OFTEN DO YOU SMOKE CIGARETTES?EVERY DAY PATIENT COUNSELED ON THE DANGERS OF TOBACCO USE AND URGED TO QUIT:07/20/2018 LATEX QUESTIONNAIRE LATEX ALLERGY : HAVE YOU EVER DEVELOPED ANY TYPE OF REACTION AFTER HANDLING LATEX PRODUCTS SUCH RUBBER GLOVES, CONDOMS, DIAPHRAGMS, BALLOONS, SOCKS, OR UNDERWEAR?NO LATEX ALLERGY : HAVE YOU EVER DEVELOPED ANY TYPE OF REACTION DURING OR AFTER DENTAL APPOINTMENT, VAGINAL/RECTAL EXAMINATION, SURGICAL PROCEDURE, OR ANY OTHER EXPOSURE?NO LATEX RISK : HAVE YOU EVER HAD ANY DIFFICULTY BREATHING OR HIVES AFTER EATING OR HANDLING ANY FRUITS, OR VEGETABLES; SUCH KIWI, BANANAS, STONE FRUITS, OR CHESTNUTSNO LATEX RISK : DO YOU HAVE A PREVIOUS PERSONAL HISTORY OF MORE THAN NINE SURGERIES, SPINA BIFIDA, OR REPEATED CATHERTIZATIONS? NO LATEX RISK : ARE YOU FREQUENTLY EXPOSED TO LATEX PRODUCTS IN YOUR OCCUPATION?NO DATE ASKED : 07/20/2018 LUNG CANCER SCREENING PFS REFERRAL NEEDED? NO, CLERGY REFERRAL NEEDED? NO, PUBLIC HEALTH REFERRAL NEEDED? NO, WAS THE PROVIDER NOTIFIED OF ANY PERTINENT INFO? NO, HAS THE PATIENT BEEN EDUCATED REGARDING HIS/HER PLAN OF CARE? YES, HAS THE PATIENT BEEN EDUCATED REGARDING PAIN, THE RISK FOR PAIN, THE IMPORTANCE OF EFFECTIVE PAIN MANAGEMENT, AND THE PAIN ASSESSMENT PROCESS? YES. BMI CARE GOAL FOLLOW-UP PFS REFERRAL NEEDED? NO, CLERGY REFERRAL NEEDED? NO, PUBLIC HEALTH REFERRAL NEEDED? NO, WAS THE PROVIDER NOTIFIED OF ANY PERTINENT INFO? NO, HAS THE PATIENT BEEN EDUCATED REGARDING HIS/HER PLAN OF CARE? YES, HAS THE PATIENT BEEN EDUCATED REGARDING PAIN, THE RISK FOR PAIN, THE IMPORTANCE OF EFFECTIVE PAIN MANAGEMENT, AND THE PAIN ASSESSMENT PROCESS? YES. ALCOHOL SCREENING DID YOU HAVE A DRINK CONTAINING ALCOHOL IN THE PAST YEAR?YES HOW OFTEN DID YOU HAVE A DRINK CONTAINING ALCOHOL IN THE PAST YEAR?FOUR OR MORE TIMES A WEEK (4 POINTS) HOW MANY DRINKS DID YOU HAVE ON A TYPICAL DAY WHEN YOU WERE DRINKING IN THE PAST YEAR?1 OR 2 (0 POINTS) HOW OFTEN DID YOU HAVE SIX OR MORE DRINKS ON ONE OCCASION IN THE PAST YEAR?LESS THAN MONTHLY (1 POINT) POINTS5 INTERPRETATIONPOSITIVE RECREATIONAL DRUG USE DRUG USE?NO CAFFEINE CAFFEINE USE?YES DAILY HOW OFTEN AND HOW MUCH? 1 CUP COFFEE PER DAY SABIANIST [id number] OTHER CONFUCIANIST LANGUAGE LANGUAGES SPOKEN:LEBANESE LEARNING BARRIERS / SPECIAL NEEDS ORIENTED TO PLAN OF CARE: PATIENT, PAIN MANAGEMENT PATIENT, ORIENTED TO PLAN OF CARE: PATIENT, PAIN MANAGEMENT PATIENT. DIET: REGULAR. EXERCISE: WALKS. MARITAL STATUS: ., . NEW PATIENT PAIN DIARY TODAY'S VISITNOTES FROM 0-10, WHAT LEVEL IS YOUR PAIN TODAY?7 PAIN CLINIC PFS, CLERGY, PUBLIC HEALTH REFERRALS HAS THE PATIENT BEEN EDUCATED REGARDING HIS/HER PLAN OF CARE?YES HAS THE PATIENT BEEN EDUCATED REGARDING PAIN, THE RISK FOR PAIN, THE IMPORTANCE OF EFFECTIVE PAIN MANAGEMENT, AND THE PAIN ASSESSMENT PROCESS?YES ADVANCE DIRECTIVE ADVANCE DIRECTIVE DISCUSSED WITH PATIENT:YES DECLINED HCP INFORMATION. REVIEWED, UPDATED.[facility].12/12/14REVIEWED 08/07/17 BV 1430REVIEWED WITH PT, 01/02/18 1330 LASREVIEWED WITH PATIENT 03/08/18 1334 JSREVIEWED WITH PATIENT 07/20/18 1415 JS. HOSPITALIZATION/MAJOR DIAGNOSTIC PROCEDURE SURGERIES REVIEW OF SYSTEMS REVIEWED BY: PROVIDER: AYAZ ROBERT MD . CONSTITUTIONAL: ANY CHANGE IN YOUR MEDICAL CONDITION? NO . CHILLS NO . FEVER NO . INFECTION: DO YOU HAVE NEW INFECTIONS? NO . DO YOU HAVE HISTORY OF MRSA? NO . MUSCULOSKELETAL: ANY NEW PATTERNS OF PAIN OR NUMBNESS? NO . GASTROENTEROLOGY: ANY NEW CHANGE IN BOWEL CONTROL? NO . GENITOURINARY: ANY NEW CHANGE IN BLADDER CONTROL? NO . IS THERE A CHANCE YOU COULD BE ? NO . HEMATOLOGY/LYMPH: DO YOU TAKE ANY BLOOD THINNERS? (FOR EXAMPLE- COUMADIN, PLAVIX, AGGRENOX, PLATEL, PRADAXA, OR XARELTO) NO . WHEN WAS YOUR LAST DOSE? DATE: TIME: . NEUROLOGY: HAVE YOU FALLEN IN THE PAST 12 MONTHS? YES, STATES PRIOR TO LAST VISIT, DISCUSSED AT PREVIOUS VISIT . ANY NEW EXTREMITY NUMBNESS OR WEAKNESS? NO . CARDIOLOGY: DO YOU HAVE A PACEMAKER OR DEFIBRILLATOR? NO . RESPIRATORY: HAVE YOU BEEN SICK IN THE PAST WEEK? NO . FEVER NO . FLU LIKE SYMPTOMS? NO . COUGH NO . INTEGUMENTARY: DO YOU HAVE ANY RASHES OR OPEN SORES? NO . ALLERGIC/IMMUNO: ARE YOU ALLERGIC TO IV DYE? NO . ANY NEW ALLERGIES? NO . PSYCHIATRIC: DO YOU HAVE THOUGHTS OF HURTING YOURSELF OR SOMEONE ELSE? NO . ARE YOU ABUSED, NEGLECTED, OR IN AN UNSAFE ENVIRONMENT? NO . ENDOCRINOLOGY: ARE YOU DIABETIC? NO . OTHER: DO YOU NEED ANY PRESCRIPTIONS? YES . IF YES, PLEASE LIST: ____VOLTAREN GEL . ANY NEW PROBLEMS WITH YOUR MEDICATIONS? NO . WHEN DID YOU LAST EAT? ____ . WHEN DID YOU LAST DRINK? ____ . WHAT DID YOU LAST DRINK? ____ . NAME OF PERSON DRIVING YOU HOME? ____ . DO YOU HAVE ANY OTHER QUESTIONS OR CONCERNS NO . VITAL SIGNS WT 199.6 LBS, HT 70 IN, BMI 28.64 INDEX, BP 122/84 MM HG, HR 101 /MIN, RR 18 /MIN, TEMP 97.3 F, OXYGEN SAT % 97%, SAFE IN ENV? (Y/N) YES, NA INITIALS SC 14:12, REVIEWED BY: MEE. EXAMINATION GENERAL EXAMINATION: PATIENT IS ALERT O X 3 AND COOPERATIVE. ANTALGIC GAIT. PATIENT IS USING A CANE TO AMBULATE. TENDERNESS IN THE LOW BACK AREA. BOTH LEGS ARE WEAK AT EXTENSION AND FLEXION. MRI OF THE LUMBAR SPINE DONE ON 08/11/2015 SHOWS POST LAMINECTOMY CHANGES. ASSESSMENTS LUMBAR POST-LAMINECTOMY SYNDROME - M96.1 (PRIMARY) TREATMENT LUMBAR POST-LAMINECTOMY SYNDROME REFILL HYDROCODONE-ACETAMINOPHEN TABLET, 10-325 MG, 1 TAB, ORALLY, Q6H PRN PAIN MDD4, 30 DAY(S), 120, REFILLS 0 REFILL VOLTAREN GEL, 1 %, ONE APPLICATION, TRANSDERMAL, APPLY 4 GRAMS TO LOW BACK Q 6 HRS FOR PAIN, 30 DAY(S), 2, REFILLS 2, NOTES: RAN OUT CLINICAL NOTES: WE DISCUSSED SEVERAL ISSUES WITH MR. CURTIS'S PAIN MANAGEMENT CASE. I WILL REDUCE THE PATIENT'S HYDROCODONE FROM 5 TO 4 TABLETS PER DAY. ISTOP _#[id number] WAS REVIEWED. I WOULD LIKE THE PATIENT TO START USING VOLTAREN GEL TO TRY TO REDUCE THE USE OF THE NARCOTIC MUCH POSSIBLE. THE PATIENT HAS TRIED SEVERAL NSAIDS THAT HAVE NOT HELPED HIM AND VOLTAREN GEL HAS HELPED IN THE PAST. THE PATIENT WILL FOLLOW UP IN 2 MONTHS. INSTRUCTIONS WERE GIVEN, QUESTIONS WERE ANSWERED, PATIENT REPORTS UNDERSTANDING AND AGREES WITH THE PLAN. I, NAILA HUGHES, DOCUMENTED THE ABOVE INFORMATION ACTING A SCRIBE FOR DR. ROBERT. I HAVE REVIEWED THE ABOVE DOCUMENT, WRITTEN BY NAILA PIERREIBKaela AND I VERIFY THAT IT IS ACCURATE. . PROCEDURES PN WORKMANS' COMP OPINION IN YOUR OPINION, WAS THE INCIDENT THAT THE PATIENT DESCRIBED THE COMPETENT MEDICAL CAUSE OF THIS INJURY/ILLNESS? YES ARE THE PATIENT'S COMPLAINTS CONSISTENT WITH HIS/HER HISTORY OF THE INJURY/ILLNESS? YES IS THE PATIENT'S HISTORY OF THE INJURY/ILLNESS CONSISTENT WITH YOUR OBJECTIVE FINDING? YES WHAT IS THE PERCENTAGE OF TEMPORARY IMPAIRMENT? MODERATE TO MARKED = 66.7% IS THE PATIENT WORKING? NO DOCTOR ON SITE: AYAZ COSTELLO MD PROCEDURE CODES FA211 ESTABILISHED PATIENT [facility] FACILITY CHARGE G8427 CURRENT MEDS W/DOSAGES DOCUMENTED G8730 PAIN ASSESS POS TOOL F/U PLAN DOC DISPOSITION & COMMUNICATION FOLLOW UP 2 MONTHS (REASON: W/C LOW BACK) ELECTRONICALLY SIGNED BY AYAZ ROBERT MD, MD ON 08/02/2018 AT 09:20 AM EDT DISCLAIMER : THIS IS A VISIT SUMMARY EXTRACTED FROM THE [employer] CHART. IT IS NOT A COPY OF THE [employer] PROGRESS NOTE. JOIE
== END ==
LOC: M PAIN 13:45
PROVIDERS: ATTEND Anesthesiology
DX: M96.1 Postlaminectomy syndrome, not elsewhere classified (principal); K21.9 Gastro-esophageal reflux disease without esophagitis; E78.5 Hyperlipidemia, unspecified; G47.30 Sleep apnea, unspecified; M06.9 Rheumatoid arthritis, unspecified; F32.9 Major depressive disorder, single episode, unspecified; F41.9 Anxiety disorder, unspecified; F17.210 Nicotine dependence, cigarettes, uncomplicated; Z79.891 Long term (current) use of opiate analgesic; Z79.899 Other long term (current) drug therapy; Z88.5 Allergy status to narcotic agent; Z88.8 Allergy status to other drugs, medicaments and biological substances

== ENCOUNTER → 2018-10-02 | Outpatient (CLI) | payer OTHER ==
[~2018-10-02] MED LIST changes: -/CLON1TA PO; -/PREG25CA PO; -/PRIM50TA PO; +CLON-412 PO; +PREG25CA PO; +PRIM50TA6 PO; +TRIM100T10 PO; -TRIM10TA PO
== END ==
LOC: M PAIN 14:00
PROVIDERS: ATTEND Anesthesiology
DX: M96.1 Postlaminectomy syndrome, not elsewhere classified (principal); Z53.8 Procedure and treatment not carried out for other reasons

== ENCOUNTER → 2019-10-19 | Outpatient (CLI) | payer OTHER ==
[~2019-10-19] MED LIST changes: +AMBI10TA PO; +ATOR1TAB21 PO; +BENA25CA4 PO; +IBUP80TA PO; +INDE80CA10 PO; +INDO-16 PO; -INDO25CA PO; +MULTCAP PO; -[UNRECOGNIZED DRUG - CODE] PO
== END ==
LOC: M LABSMTC 08:41
PROVIDERS: ATTEND Anesthesiology
DX: Z03.818 Encounter for observation for suspected exposure to other biological agents ruled out (principal); Z11.59 Encounter for screening for other viral diseases
CPT/HCPCS: C9803; U0003

== ENCOUNTER 2019-10-22 13:57 | Day surgery (SDC) | payer MEDICARE ==
[~2019-10-22] VITALS: Ht 177.8 cm; Wt 106.1 kg
[~2019-10-22 13:57] MED LIST changes: +NS 1,000 ML IV SCH; +PANT40TA29 PO; -PANT40TA3 PO
[2019-10-22] MEDS ORDERED: propofoL 500 MG/50 ML VIAL As Ordered ONE (14:40)
[2019-10-22] MEDS ORDERED: LIDOCAINE 2% 100MG/5ML SDV (FOR ANES.) As Ordered ONE (14:40)
--- NOTE | 2019-10-22 16:10 | ROOR ---
Patient Name: Omer Roth Procedure Date: 10/22/2019 3:13 PM Date of : 1965 Age: 54 Room: [facility] Gender: Male Note Status: Finalized Procedure: Upper GI endoscopy Indications: Dyspepsia, Dysphagia, Heartburn Providers: Tony Peace MD Referring MD: KASH VAZQUEZ DO Requesting Provider: Medicines: Monitored Anesthesia Care Complications: No immediate complications. Procedure: Pre-Anesthesia Assessment: - Prior to the procedure, a History and Physical was performed, and patient medications and allergies were reviewed. The patient is competent. The risks and benefits of the procedure and the sedation options and risks were discussed with the patient. All questions were answered and informed consent was obtained. Patient identification and proposed procedure were verified by the physician, the nurse and the anesthesiologist in the procedure room. Mental Status Examination: alert and oriented. Airway Examination: normal oropharyngeal airway and neck mobility. Respiratory Examination: clear to auscultation. CV Examination: normal. Prophylactic Antibiotics: The patient does not require prophylactic antibiotics. Prior Anticoagulants: The patient has taken no previous anticoagulant or antiplatelet agents. ASA Grade Assessment: II - A patient with mild systemic disease. After reviewing the risks and benefits, the patient was deemed in satisfactory condition to undergo the procedure. The anesthesia plan was to use monitored anesthesia care (MAC). Immediately prior to administration of medications, the patient was re-assessed for adequacy to receive sedatives. The heart rate, respiratory rate, oxygen saturations, blood pressure, adequacy of pulmonary ventilation, and response to care were monitored throughout the procedure. The physical status of the patient was re-assessed after the procedure. The Endoscope was introduced through the mouth, and advanced to the second part of duodenum. The upper GI endoscopy was accomplished without difficulty. The patient tolerated the procedure well. Findings: One tongue of salmon-colored mucosa was present from 36 to 38 cm. Hiatal narrowing was identified at 41 cm. The maximum longitudinal extent of these esophageal mucosal changes was 2 cm in length. Biopsies were taken with a cold forceps for histology. Verification of patient identification for the specimen was done by the physician and nurse using the patient's name, date and medical record number. Estimated blood loss was minimal. A large hiatal hernia was found. The proximal extent of the gastric folds (end of tubular esophagus) was 38 cm from the incisors. The hiatal narrowing was 41 cm from the incisors. The Z-line was 36 cm from the incisors. Scattered mild inflammation characterized by erythema and granularity was found in the gastric antrum. Biopsies were taken with a cold forceps for Helicobacter pylori testing. The duodenal bulb and second portion of the duodenum were normal. Biopsies for histology were taken with a cold forceps for evaluation of celiac disease. Impression: - Melrose-colored mucosa suspicious for short-segment Kent's esophagus. Biopsied. - Large hiatal hernia. - Gastritis. Biopsied. - Normal duodenal bulb and second portion of the duodenum. Biopsied. Recommendation: - Patient has a contact number available for emergencies. The signs and symptoms of potential delayed complications were discussed with the patient. Return to normal activities tomorrow. Written discharge instructions were provided to the patient. - High fiber diet. - Continue present medications. - Follow an antireflux regimen. - Use Pepcid (famotidine) 40 mg PO BID for 12 weeks. - Use Protonix (pantoprazole) 40 mg PO twice daily - to be taken in morning (1/2 hour before breakfast) and at bedtime ( atleast 3 hours after last meal) for 12 weeks. - Await pathology results. - Return to GI clinic in [facility] (address [address], [address], [place], [facility]) in 4 -- 6 weeks. Please call GI clinic @ [phone] for apppointment date and time. - Return to primary care physician. Tony Peace MD Tony Peace MD 10/22/2019 4:10:13 PM Electronically signed by Tony Peace MD Number of Addenda: 0 Note Initiated On: 10/22/2019 3:13 PM Estimated Blood Loss: Estimated blood loss was minimal.
[2019-10-22 16:19] VITALS: BP 122/72
== END 2019-10-22 16:19 | disposition home or self-care (01) ==
LOC: M OPP 13:57
PROVIDERS: ATTEND Internal Medicine Gastroenterology
DX: K22.8 Other specified diseases of esophagus (principal); K44.9 Diaphragmatic hernia without obstruction or gangrene; K29.70 Gastritis, unspecified, without bleeding; R10.13 Epigastric pain; R13.10 Dysphagia, unspecified; J44.9 Chronic obstructive pulmonary disease, unspecified; G47.30 Sleep apnea, unspecified; F17.210 Nicotine dependence, cigarettes, uncomplicated; Z79.899 Other long term (current) drug therapy; Z88.5 Allergy status to narcotic agent; Z88.8 Allergy status to other drugs, medicaments and biological substances

== ENCOUNTER 2022-01-02 15:22 | Inpatient (IN) | payer MEDICARE, MEDICAID ==
[~2022-01-02] VITALS: Ht 177.8 cm; Wt 97.0 kg
[~2022-01-02 15:22] MED LIST changes: -AMIT10TA PO; +AMIT10TA7 PO; -NS 1,000 ML IV SCH
[2022-01-02 16:10] LABS: VENOUS BASE EXCESS -0.9 (-2.0-2.0); VENOUS HCO3 24.4 MEQ/L (23.0-27.0); VENOUS O2 SATURATION 69.7 % (60.0-80.0); VENOUS PARTIAL PRESSURE CO2 42.4 mmHg (38.0-50.0); VENOUS PARTIAL PRESSURE O2 33.6 mmHg (30.0-50.0); VENOUS PH 7.377 UNITS (7.330-7.430); VENOUS STANDARD HCO3 23.1 MEQ/L; VENOUS TOTAL CO2 25.7 MEQ/L (24.0-28.0)
[2022-01-02 16:14] LABS: BASO % 0.1 % (0.0-1.0); EOS # 0.1 10^3/uL (0.0-0.5); EOS % 0.7 % (0.0-3.0); HEMATOCRIT 37.5 % (42.0-52.0); HEMOGLOBIN 13.1 g/dl (13.5-17.5); LYMPH # 1.7 10^3/uL (1.5-5.0); MEAN CORPUSCULAR HEMOGLOBIN 31.2 pg (27.0-33.0); MEAN CORPUSCULAR HGB CONC 34.9 g/dl (32.0-36.5); MEAN CORPUSCULAR VOLUME 89.3 fl (80.0-96.0); MONO # 0.7 10^3/uL (0.0-0.8); MONO % 8.2 % (2.0-8.0); NEUTROPHILS # 5.7 10^3/uL (1.5-8.5); NEUTROPHILS % 69.8 % (36.0-66.0); PLATELET COUNT, AUTOMATED 159 10^3/uL (150-450); WHITE BLOOD COUNT 8.2 10^3/uL (4.0-10.0)
[2022-01-02 16:49] LABS: ALBUMIN 3.5 GM/DL (3.2-5.2); ALT/SGPT 44 U/L (12-78); BILIRUBIN,DIRECT 0.1 MG/DL (0.0-0.2); BILIRUBIN,TOTAL 0.5 MG/DL (0.2-1.0); BLOOD UREA NITROGEN 22 MG/DL (7-18); CALCIUM LEVEL 8.5 MG/DL (8.5-10.1); CARBON DIOXIDE LEVEL 24 MEQ/L (21-32); CHLORIDE LEVEL 111 MEQ/L (98-107); CREATININE FOR GFR 0.99 MG/DL (0.70-1.30); GLOMERULAR FILTRATION RATE > 60.0 (>56); GLUCOSE, FASTING 101 MG/DL (70-100); NT-PRO BNP 77 PG/ML (<125); POTASSIUM SERUM 3.8 MEQ/L (3.5-5.1); SODIUM LEVEL 140 MEQ/L (136-145); THYROXINE (T4) 11.4 UG/DL (4.5-12.0); TOTAL PROTEIN 6.3 GM/DL (6.4-8.2)
[2022-01-02 16:49] LABS: RSV AMPLIFICATION NEGATIVE (NEGATIVE)
[2022-01-02] MEDS ORDERED: ISOVUE-370 76% 100ML VIAL As Ordered ONE (16:56)
[2022-01-02] MEDS ORDERED: DONE-1 PO (17:28)
[2022-01-02] MEDS ORDERED: AMLO1TAB24 PO (17:28)
[2022-01-02] MEDS ORDERED: HOME MED LIST COMPLETE! XX SCH (17:30)
[2022-01-02] MEDS ORDERED: ALBUTEROL 90 MCG/ACT 8GM HFA INHALER INH PRN (18:20)
[2022-01-02] MEDS: NS 1,000 ML IV SCH (19:32)
[2022-01-03] MEDS ORDERED: PROHANCE 279.3MG/ML 15ML VIAL As Ordered ONE (00:10)
[2022-01-03] MEDS ORDERED: PROHANCE 279.3MG/ML 5ML VIAL As Ordered ONE (00:11)
[2022-01-03 01:45] VITALS: BP 110/68
[2022-01-03] MEDS: NS 1,000 ML IV SCH ×2 (01:59→13:14)
[2022-01-03 02:30] VITALS: BP_SYST 110; BP_SYST 119; BP_SYST 123; BP_DIAS 64; BP_DIAS 66; BP_DIAS 68
[2022-01-03 06:00] VITALS: BP 108/60
[2022-01-03 06:16] LABS: HEMATOCRIT 35.3 % (42.0-52.0); HEMOGLOBIN 12.4 g/dl (13.5-17.5); MEAN CORPUSCULAR HEMOGLOBIN 31.7 pg (27.0-33.0); MEAN CORPUSCULAR HGB CONC 35.1 g/dl (32.0-36.5); MEAN CORPUSCULAR VOLUME 90.3 fl (80.0-96.0); PLATELET COUNT, AUTOMATED 141 10^3/uL (150-450); RED BLOOD COUNT 3.91 10^6/uL (4.30-6.10); WHITE BLOOD COUNT 6.6 10^3/uL (4.0-10.0)
[2022-01-03 06:50] LABS: BLOOD UREA NITROGEN 18 MG/DL (7-18); CALCIUM LEVEL 8.5 MG/DL (8.5-10.1); CARBON DIOXIDE LEVEL 21 MEQ/L (21-32); CHLORIDE LEVEL 110 MEQ/L (98-107); CREATININE FOR GFR 0.72 MG/DL (0.70-1.30); GLOMERULAR FILTRATION RATE > 60.0 (>56); GLUCOSE, FASTING 87 MG/DL (70-100); MAGNESIUM LEVEL 2.2 MG/DL (1.8-2.4); POTASSIUM SERUM 3.8 MEQ/L (3.5-5.1); SODIUM LEVEL 138 MEQ/L (136-145)
[2022-01-03 09:00] VITALS: BP 109/61
[2022-01-03] MEDS ORDERED: ENOXAPARIN 40MG/0.4ML SYRINGE (J1650 PER 10MG) SC SCH (09:00)
[2022-01-03] MEDS ORDERED: amLODIPine 5 MG TAB PO SCH (09:00)
[2022-01-03] MEDS ORDERED: NIRM1TAB PO (11:00)
[2022-01-03 11:53] VITALS: BP 109/61
[2022-01-03 11:57] LABS: FOLATE 12.2 NG/ML; VITAMIN B12 LEVEL 498 PG/ML
== END 2022-01-03 16:56 | disposition home or self-care (01) | DRG 312 ==
LOC: M ED 15:22 → M ED INP 18:20 → ENRESERV 19:44 → M MSPAV 01-03 01:35
PROVIDERS: ADMIT Family Medicine; ATTEND Family Medicine
DX: R55 Syncope and collapse (principal); U07.1 COVID-19; I10 Essential (primary) hypertension; E78.5 Hyperlipidemia, unspecified; J44.9 Chronic obstructive pulmonary disease, unspecified; Z66 Do not resuscitate; F17.200 Nicotine dependence, unspecified, uncomplicated; F03.90 Unspecified dementia, unspecified severity, without behavioral disturbance, psychotic disturbance, mood disturbance, and anxiety; Z79.899 Other long term (current) drug therapy; Z88.5 Allergy status to narcotic agent; Z88.8 Allergy status to other drugs, medicaments and biological substances

== ENCOUNTER → 2022-07-10 | Outpatient (CLI) | payer MEDICARE, MEDICAID ==
[~2022-07-10] MED LIST changes: +AMLO1TAB24 PO; -ASMA16.7 PO; +DONE-1 PO; +MOME13HF4 PO; +NIRM1TAB PO
[2022-07-10 16:14] LABS: BLOOD UREA NITROGEN 24 MG/DL (9-23); CREATININE FOR GFR 0.94 MG/DL (0.70-1.30); GLOMERULAR FILTRATION RATE > 60.0 (>56)
== END ==
LOC: M LAB 15:02
PROVIDERS: ATTEND Physician Assistant
DX: I70.213 Atherosclerosis of native arteries of extremities with intermittent claudication, bilateral legs (principal)